=== PATIENT | male | born 1930 | race Caucasian/White ===

== ENCOUNTER 2017-10-13 16:33 | Observation (INO) | payer MEDICARE, OTHER ==
[2017-10-13] MEDS ORDERED: Iopamidol 755 Mg/ML 75 ML Bottle IV ONE (17:28)
--- NOTE | 2017-10-13 18:52 | EDM.PDOC ---
ED HPI GENERAL MEDICAL PROBLEM - General Stated Complaint: FELL OFF [employer] TRAILER Time Seen by Provider: 10/13/17 16:33 Source of Information: Reports: Patient History Limitations: Reports: Physical Impairment (severe arthritis, Severe pulmonary fibrosis) - History of Present Illness INITIAL COMMENTS - FREE TEXT/NARRATIVE: 87 y.o w m with a h/o ostoarthitis and pulmonary fibrosis, came by EMS after he was unloading a 4 Sorto, missed the steps and fell onto his head, neck and upper back and shoulder. Pt denies LOC. He C/O headache, neck, upper back and bilat shoulder pain. No F/C/N/V or any other constitutional symptoms. A [place] collar was applied initially pending the Imaging studies. BP 155/ 95 RR 20 Pulse ox 93 % on RA temp 36.8 Pulse 93 Onset Date: 10/13/17 Onset Time: 16:00 Duration: Minutes:, Improving Location: Reports: Neck, Back, Other (shoulders) Quality: Reports: Ache, Burning, Dull, Stabbing, Throbbing Severity: Moderate Improves with: Reports: Rest Worsens with: Reports: Movement Context: Reports: Trauma (fell on upper back) Associated Symptoms: Reports: Headaches neck/shoulder Pain Score (Numeric/FACES): 10 - Related Data Allergies Allergy/AdvReac Type Severity Reaction Status Date / Time No Known Allergies Allergy Verified 10/13/17 17:03 Home Meds: Home Meds Folic Acid 1 mg PO DAILY 10/13/17 [History] [place] 1 tab PO DAILY 10/13/17 [History] metFORMIN HCl [Metformin HCl] 500 mg PO DAILY 10/13/17 [History] predniSONE [Prednisone] 10 mg PO BID 10/13/17 [History] sulfaSALAzine [sulfaSALAzine DR] 500 mg PO DAILY 10/13/17 [History] Past Medical History - Past Health History Medical/Surgical History: Denies Medical/Surgical History Musculoskeletal History: Reports: Arthritis Social & Family History - Family History Family Medical History: Noncontributory - Tobacco Use Smoking Status *Q: Never Smoker Second Hand Smoke Exposure: No - Caffeine Use Caffeine Use: Reports: Coffee - Alcohol Use Days Per Week of Alcohol Use: 0 - Recreational Drug Use Recreational Drug Use: No ED ROS GENERAL - Review of Systems Review Of Systems: See Below Constitutional: Reports: No Symptoms HEENT: Reports: No Symptoms Respiratory: Reports: No Symptoms Cardiovascular: Reports: No Symptoms Endocrine: Reports: No Symptoms GI/Abdominal: Reports: No Symptoms : Reports: No Symptoms Musculoskeletal: Reports: Neck Pain, Shoulder Pain Skin: Reports: No Symptoms Neurological: Reports: Headache Psychiatric: Reports: No Symptoms Hematologic/Lymphatic: Reports: No Symptoms Immunologic: Reports: No Symptoms ED EXAM, UPPER BACK/NECK PAIN - Physical Exam Exam: See Below Exam Limited By: Physical Impairment General Appearance: Alert, WD/WN, Mild Distress Eye Exam: Bilateral Eye: Normal Inspection Ears Exam: Normal External Exam Nose Exam: Normal Inspection Throat/Mouth Exam: Normal Inspection Head Exam: Atraumatic, Normocephalic Neck Exam: Limited Range of Motion (due to severe arthitis), Muscle Spasm Cardiovascular/Respiratory: Regular Rate, Rhythm GI/Abdominal: Normal Bowel Sounds, Soft, Non-Tender, No Organomegaly, No Distention, No Abnormal Bruit, No Mass, Pelvis Stable (Male) Exam: Deferred Rectal (Males) Exam: Deferred Back Exam: Decreased Range of Motion, Muscle Spasm Extremities: Normal Inspection, Normal Range of Motion, Non-Tender, No Pedal Edema Neurologic: revising clerk II-XII nml As Tested, No Motor/Sensory Deficits, Alert, Normal Mood/Affect, Oriented x 3 Psychiatric: Normal Affect, Normal Mood Skin Exam: Normal Color, Warm/Dry Lymphatic: No Adenopathy Course - Vital Signs Text/Narrative:: 87 y.o w m with a h/o ostoarthitis and pulmonary fibrosis, came by EMS after he was unloading a 4 [employer]o, missed the steps and fell onto his head, neck and upper back and shoulder. Pt denies LOC. He C/O headache, neck, upper back and bilat shoulder pain. No F/C/N/V or any other constitutional symptoms. A [place] collar was applied initially pending the Imaging studies. BP 155/ 95 RR 20 Pulse ox 93 % on RA temp 36.8 Pulse 93 PE: WNWD W M with pulm fibrosis and osteoarthritis came by ems after he fell off a trailer onto his head,neckand upper back/shoulders. No LOC, pt ins not on blood thinners. Imaging: CT of head, neck and chest:NAD, same as the study of 2016 Labs: CBC was neg exeprt WBC was 14.2 BMP was neg glc was 161 however. His INR was 1.15 Impression: Fall to head/neck and chest without obvious injures, H/O pulm fibrosis. osteoarthritis, muscle spasm Tx: ICE, Toradol, Norflex Reexam: Improved. Plan: Admit for pain controll pt signed out to Dr. Cannon at 8 pm due to shift change Last Recorded V/S: Last Vital Signs Temp 36.5 C 10/13/17 20:12 Pulse 91 10/13/17 20:12 Resp 16 10/13/17 20:12 BP 141/67 H 10/13/17 20:12 Pulse Ox 95 10/13/17 20:12 - Orders/Labs/Meds Orders: Active Orders 24 hr Category Date Time Status Cervical Spine wo Cont [CT] Stat Exams 10/13/17 16:45 Taken Chest w Cont [CT] Stat Exams 10/13/17 16:56 Taken Head wo Cont [CT] Stat Exams 10/13/17 16:45 Taken UA W/MICROSCOPIC [URIN] Stat Lab 10/13/17 16:50 Ordered Medication Orders Albuterol (Proventil Neb Soln) 2.5 mg NEB Q2H PRN PRN Reason: Shortness Of Breath/wheezing Docusate Sodium (Colace) 100 mg PO BID PRN PRN Reason: Constipation Ibuprofen (Motrin) 600 mg PO Q6H PRN PRN Reason: Pain (mild 1-3) Ondansetron HCl (Zofran) 4 mg IV Q4H PRN PRN Reason: Nausea/Vomiting Oxycodone HCl (Oxycodone) 5 mg PO Q4H PRN PRN Reason: Pain (moderate 4-6) Oxycodone/Acetaminophen (Percocet 325-5 Mg) 1 tab PO Q6H PRN PRN Reason: severe pain Sodium Chloride (Saline Flush) 10 ml FLUSH ASDIRECTED PRN PRN Reason: Keep Vein Open Labs: Laboratory Tests 10/13/17 10/13/17 10/13/17 Range/Units 16:50 17:00 17:00 WBC 14.8 H (4.5-12.0) X10-3/uL RBC 5.30 (4.30-5.75) x10(6)uL Hgb 15.4 (11.5-15.5) g/dL Hct 47.7 (30.0-51.3) % MCV 90.1 (80-96) fL MCH 29.0 (27.7-33.6) pg MCHC 32.2 (32.2-35.4) g/dL RDW 14.9 (11.5-15.5) % Plt Count 289 (125-369) X10(3)uL MPV 8.8 (7.4-10.4) fL Add Manual Diff Yes Neutrophils % (Manual) 81 (46-82) % Band Neutrophils % 2 (0-6) % Lymphocytes % (Manual) 6 L (13-37) % Monocytes % (Manual) 10 (4-12) % Basophils % (Manual) 1 (0-2) % PT 11.6 H (8.7-11.1) INR 1.15 H (0.89-1.13) Sodium (135-145) mmol/L Potassium (3.5-5.3) mmol/L Chloride (100-110) mmol/L Carbon Dioxide (21-32) mmol/L BUN (7-18) mg/dL Creatinine (0.70-1.30) mg/dL Est Cr Clr Drug Dosing mL/min Estimated GFR (MDRD) (>60) BUN/Creatinine Ratio (9-20) Glucose (80-116) mg/dL Calcium (8.6-10.2) mg/dL Creatine Kinase (60-160) IU/L Troponin I (<0.017-0.056) ng/mL Urine Color Yellow (YELLOW) Urine Appearance Clear (CLEAR) Urine pH 7.0 H (5.0-6.5) Ur Specific [place] 1.015 (1.010-1.025) Urine Protein Negative (NEGATIVE) mg/dL Urine Glucose (UA) Normal (NEGATIVE) mg/dL Urine Ketones Negative (NEGATIVE) mg/dL Urine Occult Blood Negative (NEGATIVE) Urine Nitrite Negative (NEGATIVE) Urine Bilirubin Negative (NEGATIVE) Urine Urobilinogen Normal (NEGATIVE) mg/dL Ur Leukocyte Esterase Negative (NEGATIVE) Urine RBC 0-5 (0) Urine WBC 0-5 (0) Ur Squamous Epith Cells Occasional (NS,R,O) Urine Bacteria Few H (NS) 10/13/17 10/13/17 10/13/17 Range/Units 17:00 17:00 17:00 WBC (4.5-12.0) X10-3/uL RBC (4.30-5.75) x10(6)uL Hgb (11.5-15.5) g/dL Hct (30.0-51.3) % MCV (80-96) fL MCH (27.7-33.6) pg MCHC (32.2-35.4) g/dL RDW (11.5-15.5) % Plt Count (125-369) X10(3)uL MPV (7.4-10.4) fL Add Manual Diff Neutrophils % (Manual) (46-82) % Band Neutrophils % (0-6) % Lymphocytes % (Manual) (13-37) % Monocytes % (Manual) (4-12) % Basophils % (Manual) (0-2) % PT (8.7-11.1) INR (0.89-1.13) Sodium 141 (135-145) mmol/L Potassium 4.1 (3.5-5.3) mmol/L Chloride 104 (100-110) mmol/L Carbon Dioxide 28 (21-32) mmol/L BUN 15 (7-18) mg/dL Creatinine 0.9 (0.70-1.30) mg/dL Est Cr Clr Drug Dosing 65.86 mL/min Estimated GFR (MDRD) > 60 (>60) BUN/Creatinine Ratio 16.7 (9-20) Glucose 134 H (80-116) mg/dL Calcium 9.0 (8.6-10.2) mg/dL Creatine Kinase 114 (60-160) IU/L Troponin I < 0.017 L (<0.017-0.056) ng/mL Urine Color (YELLOW) Urine Appearance (CLEAR) Urine pH (5.0-6.5) Ur Specific [place] (1.010-1.025) Urine Protein (NEGATIVE) mg/dL Urine Glucose (UA) (NEGATIVE) mg/dL Urine Ketones (NEGATIVE) mg/dL Urine Occult Blood (NEGATIVE) Urine Nitrite (NEGATIVE) Urine Bilirubin (NEGATIVE) Urine Urobilinogen (NEGATIVE) mg/dL Ur Leukocyte Esterase (NEGATIVE) Urine RBC (0) Urine WBC (0) Ur Squamous Epith Cells (NS,R,O) Urine Bacteria (NS) Meds: Medications Generic Name Dose Route Start Last Admin Trade Name Freq PRN Reason Stop Dose Admin Albuterol 2.5 mg 10/13/17 19:54 Proventil Neb Soln NEB Q2H PRN Shortness Of Breath/wheezing Docusate Sodium 100 mg 10/13/17 19:54 Colace PO BID PRN Constipation Ibuprofen 600 mg 10/13/17 19:54 Motrin PO Q6H PRN Pain (mild 1-3) Ondansetron HCl 4 mg 10/13/17 19:54 Zofran IV Q4H PRN Nausea/Vomiting Oxycodone HCl 5 mg 10/13/17 19:54 Oxycodone PO Q4H PRN Pain (moderate 4-6) Oxycodone/Acetaminophen 1 tab 10/13/17 20:01 Percocet 325-5 Mg PO Q6H PRN severe pain Sodium Chloride 10 ml 10/13/17 19:54 Saline Flush FLUSH ASDIRECTED PRN Keep Vein Open Discontinued Medications Generic Name Dose Route Start Last Admin Trade Name Meñoq PRN Reason Stop Dose Admin Iopamidol 75 ml 10/13/17 17:28 10/13/17 17:57 Isovue-370 (76%) IV 10/13/17 17:29 75 ml ONETIME ONE Administration Ketorolac Tromethamine 30 mg 10/13/17 19:22 10/13/17 19:35 Toradol IM 10/13/17 19:23 30 mg ONETIME STA Administration Orphenadrine Citrate 60 mg 10/13/17 19:22 10/13/17 19:33 Norflex IM 10/13/17 19:23 60 mg Q12H STA Administration Departure - Departure Time of Disposition: 20:00 Disposition: Refer to Observation Condition: Fair Clinical Impression: Fall - Discharge Information - My Orders Last 24 Hours: My Active Orders 10/13/17 16:45 Cervical Spine wo Cont [CT] Stat Head wo Cont [CT] Stat 10/13/17 16:50 UA W/MICROSCOPIC [URIN] Stat 10/13/17 16:56 Chest w Cont [CT] Stat - Assessment/Plan Last 24 Hours: My Active Orders 10/13/17 16:45 Cervical Spine wo Cont [CT] Stat Head wo Cont [CT] Stat 10/13/17 16:50 UA W/MICROSCOPIC [URIN] Stat 10/13/17 16:56 Chest w Cont [CT] Stat
[2017-10-13] MEDS ORDERED: Ketorolac 30 MG/ML SDV IM STA (19:22)
[2017-10-13] MEDS ORDERED: Docusate Sodium 100 MG Cap PO PRN (19:54)
[2017-10-13] MEDS ORDERED: Sodium Chloride 0.9% 10 ML Syringe FLUSH PRN (19:54)
[2017-10-13] MEDS ORDERED: Albuterol 0.083% 2.5 MG/3 ML Neb Soln NEB PRN (19:54)
[2017-10-13] MEDS ORDERED: Ondansetron 4 MG/2 ML SDV IV PRN (19:54)
[2017-10-13] MEDS ORDERED: oxyCODONE 5 MG Tab PO PRN (19:54)
[2017-10-13] MEDS ORDERED: Acetaminophen/oxyCODONE 325-5 MG Tab PO PRN (20:01)
[2017-10-14] MEDS: Ibuprofen 600 MG Tab PO PRN ×2 (00:45→06:36)
--- NOTE | 2017-10-14 08:48 | CT ---
INDICATION: Trauma. Fell. CT HEAD WITHOUT CONTRAST: Serial contiguous 2.5 and 5-mm sections were obtained through the brain without contrast 10/13/2017 - no comparisons. Total Exam DLP = 950.31 mGy-cm. Focal areas of thickening of the linings of the maxillary antra are noted with a few similar areas of thickening of linings of ethmoidal air cells of questionable significance, likely representing either allergic process or previous sinusitis. Mastoid air cells appear well aerated. The cranium appears to be intact. No fractures identified. Calcifications are noted in the vertebral and internal carotid arteries. Calcification is noted in the falx cerebri. No shift of midline structures or ventricular abnormalities were identified. Minimal periventricular white matter abnormalities of low-density are noted, which may represent minimal microvascular disease, mostly frontal. No other abnormal areas of density were identified - no bleeding site or hematoma was seen. IMPRESSION: 1. No acute intracranial abnormality identified. 2. Minimal microvascular disease with cerebrovascular disease - arterial calcifications noted - other cause of leukoencephalopathy cannot be excluded. 3. Minimal changes in the paranasal sinuses. Report was called to Dr. Bravo at 1911 hours, 10/13/2017. [facility]
--- NOTE | 2017-10-14 09:00 | CT ---
INDICATION: Trauma. Fell. Low neck pain, C6-T1 area. CT CERVICAL SPINE WITHOUT CONTRAST: Spiral 2.5-mm axial sections were obtained through the cervical spine with sagittal and coronal reconstructions. Bony structures appear to be demineralized, suggesting osteoporosis - correlate clinically. Total Exam DLP = 587.41 mGy-cm. Severe degenerative changes are noted at the atlantoodontoid joint with marked narrowing of that joint space, sclerosis, and hypertrophic changes at that level. The atlas appears to be intact without evidence of a fracture. The odontoid appears to be intact. Hypertrophic degenerative changes are noted at the lateral masses throughout the cervical spine. Flowing hyperostotic changes anteriorly bridge the disk spaces and appear to be fusing the anterior aspects of the vertebral bodies of C3 through C7-T1 area. Otherwise, vertebral body and disk heights were maintained. The neural foramen appears to be fairly intact and patent. Vertebral elements appear to be normally aligned, without a definite fracture or dislocation identified. A second run was obtained due to lack of inclusion of posterior spinous processes in the lower cervical levels. The upper lung pereira visualized showed evidence of pulmonary fibrosis of at least moderate to moderately severe degree. IMPRESSION: 1. No definite acute fracture or dislocation. 2. Osteoarthritis with fairly severe bridging hyperostotic changes anteriorly off vertebral bodies, most severe C4 through C7-T1. The possibility of DISH is a consideration. 3. Probable osteoporosis. 4. Pulmonary fibrosis. Report was called to Dr. Bravo at 1911 hours, 10/13/2017. [facility]
--- NOTE | 2017-10-14 09:29 | CT ---
INDICATION: Trauma, mid sternal pain after falling onto back. CT CHEST WITH CONTRAST: Spiral 2.5-mm axial sections were obtained through the chest with 75 mL Isovue-370 at 1.8 mL per second, with sagittal and coronal reconstructions, 10/13/2017 and compared with 12/29/2015. Total Exam DLP = 672.89 mGy-cm. Fairly extensive infiltration is noted on a chronic basis scattered about the lungs, most prominently subpleural and likely represents a chronic inflammatory process which appears fairly stable. A definite acute consolidating pneumonia was not identified. The heart appears generous in size with coronary artery calcifications. The aorta is calcified. Mediastinal lymphadenopathy is mild to moderate and nonspecific, similar to the previous study. No mediastinal mass was seen. The gallbladder is again noted to be somewhat prominent in size which may be a physiologic distention. A new finding of a possible calcification within the gallbladder is noted near the neck of the gallbladder, which could represent a small calculus. This could be confirmed by ultrasound as necessary clinically. Off the lower pole anterior cortex, an exophytic cyst is noted at the right kidney anteriorly, measuring almost 4 cm. A definite contusion or pneumothorax was not identified. The major vessels appear to be intact in the chest. No change in the appearance of the sternum is noted, compared with the previous examination. Degenerative changes and mild scoliosis are noted in the thoracic spine. A definite acute fracture site was not identified. Hypertrophic changes are noted at the first rib manubrial junction. No definite acute fracture site is identified. There is a compression fracture at what appears to be L1 which likely is old. It was not definitely included on the previous examination. Hypertrophic degenerative changes bridging multiple disk spaces with a flowing hyperostotic appearance also seen, suggests osteoarthritis and DISH. IMPRESSION: 1. Fairly severe pulmonary fibrosis, possible chronic inflammatory disease, fairly stable compared with the previous study. 2. 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 3. ASHD with cardiomegaly. 4. ASD. 5. Compression fracture L1 of indeterminate age. 6. No acute fracture site or dislocation, pneumothorax or contusion identified. 7. The sternum in particular, as well as the manubrium, appears to be intact, but with degenerative changes of the first rib manubrial junctions noted. Report was called to Dr. Bravo at 1911 hours, 10/13/2017. [facility]
--- NOTE | 2017-10-14 10:34 | PCM.HP ---
H&P History of Present Illness - General Date of Service: 10/14/17 Admit Problem/Dx: Admission Diagnosis/Problem Admission Diagnosis/Problem Fall from height of greater than 3 feet Source of Information: Patient History Limitations: Reports: No Limitations - History of Present Illness Initial Comments - Free Text/Narative: David fell at work yesterday,landing on the head and neck. He was admitted for observation ,despite negative CT of Head,Nack and Chest for acute findings.He has a h/o Pulmonary fibrosis,stable. He has minimal pain in the neck today. Ambulates confortably. Slept well overnight and wants to go home. neck/shoulder Pain Score (Numeric/FACES): 10 - Related Data Allergies/Adverse Reactions: Allergies Allergy/AdvReac Type Severity Reaction Status Date / Time No Known Allergies Allergy Verified 10/13/17 17:03 Home Medications: Home Meds Folic Acid 1 mg PO DAILY 10/13/17 [History] [facility] 1 tab PO DAILY 10/13/17 [History] metFORMIN HCl [Metformin HCl] 500 mg PO DAILY 10/13/17 [History] predniSONE [Prednisone] 10 mg PO BID 10/13/17 [History] sulfaSALAzine [sulfaSALAzine DR] 500 mg PO DAILY 10/13/17 [History] Acetaminophen/oxyCODONE [Percocet 325-5 MG] 1 tab PO Q6H PRN #10 tablet [Rx] Past Medical History - Past Health History Medical/Surgical History: Denies Medical/Surgical History HEENT History: Reports: Cataract, Hard of Hearing, Macular Degeneration Respiratory History: Reports: COPD Musculoskeletal History: Reports: Arthritis Neurological History: Reports: Other (See Below) Other Neuro History: Back injury from with an incident para-trooping in the service. Endocrine/Metabolic History: Reports: Diabetes, Type II - Infectious Disease History Infectious Disease History: Reports: Chicken Pox, Measles, Mumps, Rubella, Other (See Below) Other Infectious Disease History: Patient not sure if he had Rubella or Measles. - Past Surgical History HEENT Surgical History: Reports: Cataract Surgery Musculoskeletal Surgical History: Reports: Knee Replacement, Other (See Below) Other Musculoskeletal Surgeries/Procedures:: Left and right knee replacement. Social & Family History - Family History Family Medical History: Noncontributory - Tobacco Use Smoking Status *Q: Never Smoker Years of Tobacco use: 5 Used Tobacco, but Quit: No Second Hand Smoke Exposure: No - Caffeine Use Caffeine Use: Reports: Coffee Other Caffeine Use: Usually drinks half cup coffee in the am. - Alcohol Use Days Per Week of Alcohol Use: 0 - Recreational Drug Use Recreational Drug Use: No H&P Review of Systems - Review of Systems: Review Of Systems: ROS reveals no pertinent complaints other than HPI. Exam - Exam Exam: See Below - Vital Signs Vital Signs: Last Vital Signs Temp 97.5 F 10/14/17 08:00 Pulse 76 10/14/17 08:00 Resp 16 10/14/17 08:00 BP 129/63 10/14/17 08:00 Pulse Ox 95 10/14/17 08:00 Weight: 103.51 kg - Exam General: Alert, Oriented, 4 HEENT: PERRLA, Hearing Intact, Mucosa Moist & [place], Nares Patent, Normal Nasal Septum, Posterior Pharynx Clear, Conjunctiva Clear, EOMI, EACs Clear, TMs Clear Neck: Supple, Trachea Midline, 2 Lungs: Clear to Auscultation, Normal Respiratory Effort Cardiovascular: Regular Rate, Regular Rhythm GI/Abdominal Exam: Normal Bowel Sounds, Soft, Non-Tender, No Organomegaly, No Distention, No Abnormal Bruit, No Mass, Pelvis Stable (Male) Exam: Deferred Rectal (Males) Exam: Deferred Back Exam: Normal Inspection, Paraspinal Tenderness, Vertebral Tenderness Extremities: Pedal Edema Skin: Warm, Dry, Intact Neurological: Cranial Nerves Intact, Reflexes Equal Bilateral Neuro Extensive - Mental Status: Alert, Oriented x3, Normal Mood/Affect, Normal Cognition Neuro Extensive - Motor, Sensory, Reflexes: CN II-XII Intact, Normal Gait, Normal Reflexes Psychiatric: Alert, Normal Affect, Normal Mood - Patient Data Lab Results Last 24 hrs: Laboratory Results - last 24 hr 10/13/17 10/13/17 10/13/17 Range/Units 16:50 17:00 17:00 WBC 14.8 H (4.5-12.0) X10-3/uL RBC 5.30 (4.30-5.75) x10(6)uL Hgb 15.4 (11.5-15.5) g/dL Hct 47.7 (30.0-51.3) % MCV 90.1 (80-96) fL MCH 29.0 (27.7-33.6) pg MCHC 32.2 (32.2-35.4) g/dL RDW 14.9 (11.5-15.5) % Plt Count 289 (125-369) X10(3)uL MPV 8.8 (7.4-10.4) fL Add Manual Diff Yes Neutrophils % (Manual) 81 (46-82) % Band Neutrophils % 2 (0-6) % Lymphocytes % (Manual) 6 L (13-37) % Monocytes % (Manual) 10 (4-12) % Basophils % (Manual) 1 (0-2) % PT 11.6 H (8.7-11.1) INR 1.15 H (0.89-1.13) Sodium (135-145) mmol/L Potassium (3.5-5.3) mmol/L Chloride (100-110) mmol/L Carbon Dioxide (21-32) mmol/L BUN (7-18) mg/dL Creatinine (0.70-1.30) mg/dL Est Cr Clr Drug Dosing mL/min Estimated GFR (MDRD) (>60) BUN/Creatinine Ratio (9-20) Glucose (80-116) mg/dL Calcium (8.6-10.2) mg/dL Creatine Kinase (60-160) IU/L Troponin I (<0.017-0.056) ng/mL Urine Color Yellow (YELLOW) Urine Appearance Clear (CLEAR) Urine pH 7.0 H (5.0-6.5) Ur Specific [place] 1.015 (1.010-1.025) Urine Protein Negative (NEGATIVE) mg/dL Urine Glucose (UA) Normal (NEGATIVE) mg/dL Urine Ketones Negative (NEGATIVE) mg/dL Urine Occult Blood Negative (NEGATIVE) Urine Nitrite Negative (NEGATIVE) Urine Bilirubin Negative (NEGATIVE) Urine Urobilinogen Normal (NEGATIVE) mg/dL Ur Leukocyte Esterase Negative (NEGATIVE) Urine RBC 0-5 (0) Urine WBC 0-5 (0) Ur Squamous Epith Cells Occasional (NS,R,O) Urine Bacteria Few H (NS) 10/13/17 10/13/17 10/13/17 Range/Units 17:00 17:00 17:00 WBC (4.5-12.0) X10-3/uL RBC (4.30-5.75) x10(6)uL Hgb (11.5-15.5) g/dL Hct (30.0-51.3) % MCV (80-96) fL MCH (27.7-33.6) pg MCHC (32.2-35.4) g/dL RDW (11.5-15.5) % Plt Count (125-369) X10(3)uL MPV (7.4-10.4) fL Add Manual Diff Neutrophils % (Manual) (46-82) % Band Neutrophils % (0-6) % Lymphocytes % (Manual) (13-37) % Monocytes % (Manual) (4-12) % Basophils % (Manual) (0-2) % PT (8.7-11.1) INR (0.89-1.13) Sodium 141 (135-145) mmol/L Potassium 4.1 (3.5-5.3) mmol/L Chloride 104 (100-110) mmol/L Carbon Dioxide 28 (21-32) mmol/L BUN 15 (7-18) mg/dL Creatinine 0.9 (0.70-1.30) mg/dL Est Cr Clr Drug Dosing 65.86 mL/min Estimated GFR (MDRD) > 60 (>60) BUN/Creatinine Ratio 16.7 (9-20) Glucose 134 H (80-116) mg/dL Calcium 9.0 (8.6-10.2) mg/dL Creatine Kinase 114 (60-160) IU/L Troponin I < 0.017 L (<0.017-0.056) ng/mL Urine Color (YELLOW) Urine Appearance (CLEAR) Urine pH (5.0-6.5) Ur Specific [place] (1.010-1.025) Urine Protein (NEGATIVE) mg/dL Urine Glucose (UA) (NEGATIVE) mg/dL Urine Ketones (NEGATIVE) mg/dL Urine Occult Blood (NEGATIVE) Urine Nitrite (NEGATIVE) Urine Bilirubin (NEGATIVE) Urine Urobilinogen (NEGATIVE) mg/dL Ur Leukocyte Esterase (NEGATIVE) Urine RBC (0) Urine WBC (0) Ur Squamous Epith Cells (NS,R,O) Urine Bacteria (NS) Result Diagrams: 10/13/17 17:00 10/13/17 17:00 EKG INTERPRETATION Rhythm: NSR - Problem List (1) Fall SNOMED Code(s): 2770269, 199468206 ICD Code: W19.XXXA - UNSPECIFIED FALL, INITIAL ENCOUNTER Status: Acute Qualifiers: Encounter type: subsequent encounter Qualified Code(s): W19.XXXD - Unspecified fall, subsequent encounter (2) Pulmonary fibrosis SNOMED Code(s): 00578243 ICD Code: J84.10 - PULMONARY FIBROSIS, UNSPECIFIED Status: Acute (3) L1 vertebral fracture SNOMED Code(s): 865112905, 179130931 ICD Code: S32.019A - UNSP FRACTURE OF FIRST LUMBAR VERTEBRA, INIT FOR CLOS FX Status: Chronic Qualifiers: Encounter type: initial encounter (4) Neck pain SNOMED Code(s): 58410355 ICD Code: M54.2 - CERVICALGIA Status: Acute Problem List Initiated/Reviewed/Updated: Yes Orders Last 24hrs: Active Orders 24 hr Category Date Time Status Patient Status [ADT] Routine ADT 10/13/17 19:54 Active Cardiac Monitoring [RC] 00,08,16 Care 10/13/17 19:58 Active IS (RT) [RT Incentive Spirometry] [RC] ASDIRECTED Care 10/14/17 08:18 Active Oxygen Therapy [RC] PRN Care 10/13/17 19:54 Active RT Aerosol Therapy [RC] ASDIRECTED Care 10/13/17 20:00 Active Up With Assistance [RC] ASDIRECTED Care 10/13/17 19:54 Active Vital Signs [RC] 00,04,08,12,16,20 Care 10/13/17 19:54 Active UA W/MICROSCOPIC [URIN] Stat Lab 10/13/17 16:50 Ordered Acetaminophen/oxyCODONE [Percocet 325-5 MG] Med 10/13/17 20:01 Active 1 tab PO Q6H PRN Albuterol [Proventil Neb Soln] Med 10/13/17 19:54 Active 2.5 mg NEB Q2H PRN Docusate Sodium [Colace] Med 10/13/17 19:54 Active 100 mg PO BID PRN Ibuprofen [Motrin] Med 10/13/17 19:54 Active 600 mg PO Q6H PRN Ondansetron [Zofran] Med 10/13/17 19:54 Active 4 mg IV Q4H PRN Sodium Chloride 0.9% [Saline Flush] Med 10/13/17 19:54 Active 10 ml FLUSH ASDIRECTED PRN oxyCODONE Med 10/13/17 19:54 Active 5 mg PO Q4H PRN Peripheral IV Insertion Adult [OM.PC] Routine Oth 10/13/17 19:54 Ordered Resuscitation Status Routine Resus Stat 10/13/17 19:54 Ordered EKG 12 Lead [EK] Routine Ther 10/13/17 19:54 Ordered Medication Orders Albuterol (Proventil Neb Soln) 2.5 mg NEB Q2H PRN PRN Reason: Shortness Of Breath/wheezing Docusate Sodium (Colace) 100 mg PO BID PRN PRN Reason: Constipation Ibuprofen (Motrin) 600 mg PO Q6H PRN PRN Reason: Pain (mild 1-3) Last Admin: 10/14/17 06:36 Dose: 600 mg Admin: 10/14/17 00:45 Dose: 600 mg Ondansetron HCl (Zofran) 4 mg IV Q4H PRN PRN Reason: Nausea/Vomiting Oxycodone HCl (Oxycodone) 5 mg PO Q4H PRN PRN Reason: Pain (moderate 4-6) Oxycodone/Acetaminophen (Percocet 325-5 Mg) 1 tab PO Q6H PRN PRN Reason: severe pain Sodium Chloride (Saline Flush) 10 ml FLUSH ASDIRECTED PRN PRN Reason: Keep Vein Open Assessment/Plan Comment:: Will Discharge him home on PT,and pain control. He will see his PCP next week. I also sent him home on 10 tablets of Percocet to use when necessary. He'll continue to wear the neck collar for comfort as needed.
== END 2017-10-14 11:40 | disposition home or self-care (01) ==
LOC: FB.ED 16:33 → FB.MS 19:54
PROVIDERS: ADMIT Family Medicine; ATTEND Family Medicine
DX: S32.019A Unspecified fracture of first lumbar vertebra, initial encounter for closed fracture (principal); J44.9 Chronic obstructive pulmonary disease, unspecified; H35.30 Unspecified macular degeneration; M19.90 Unspecified osteoarthritis, unspecified site; E11.9 Type 2 diabetes mellitus without complications; J84.10 Pulmonary fibrosis, unspecified; W19.XXXA Unspecified fall, initial encounter; Z79.899 Other long term (current) drug therapy; Z79.84 Long term (current) use of oral hypoglycemic drugs
CPT/HCPCS: 36415; 70450; 71260; 72125; 80048; 81001; 82550; 84484; 85025; 85610; 93005; 96372; 99284; A9270; G0378; J1885; J2360; Q9967

== ENCOUNTER 2018-01-29 12:08 | Emergency (ER) | payer MEDICARE, OTHER ==
--- NOTE | 2018-01-29 12:17 | EDM.PDOC ---
ED HPI GENERAL MEDICAL PROBLEM - General Stated Complaint: LEFT HIP PAIN Time Seen by Provider: 01/29/18 12:08 Source of Information: Reports: Patient, EMS, Family History Limitations: Reports: Physical Impairment - History of Present Illness INITIAL COMMENTS - FREE TEXT/NARRATIVE: 87 y.o.w.m with H/O NIDDM, H/O C6 fx came to the ed by EMS after he fell at home , unable to get up. Pt denied any other acute med issues, Family was present. No N/V/D no neurological deficit as per family. BP 175/74 pulse 92 RR 18 Pulse ox 96% on RA Temp 36.1 Onset Date: 01/29/18 Onset Time: 11:00 Duration: Hour(s): Location: Reports: Lower Extremity, Left Quality: Reports: Ache, Burning, Dull, Pressure Severity: Moderate Improves with: Reports: Rest Worsens with: Reports: Movement Context: Reports: Trauma L hip Pain Score (Numeric/FACES): 4 - Related Data Allergies Allergy/AdvReac Type Severity Reaction Status Date / Time No Known Allergies Allergy Verified 10/13/17 17:03 Home Meds: Home Meds Folic Acid 1 mg PO DAILY 10/13/17 [History] [facility] 1 tab PO DAILY 10/13/17 [History] metFORMIN HCl [Metformin HCl] 500 mg PO DAILY 10/13/17 [History] predniSONE [Prednisone] 10 mg PO DAILY 10/13/17 [History] sulfaSALAzine [sulfaSALAzine DR] 500 mg PO DAILY 10/13/17 [History] Acetaminophen [Tylenol Extra Strength] 500 mg PO DAILY 01/29/18 [History] Past Medical History - Past Health History Medical/Surgical History: Denies Medical/Surgical History HEENT History: Reports: Cataract, Hard of Hearing, Macular Degeneration Respiratory History: Reports: COPD Musculoskeletal History: Reports: Arthritis Neurological History: Reports: Other (See Below) Other Neuro History: Back injury from with an incident para-trooping in the service. Endocrine/Metabolic History: Reports: Diabetes, Type II - Infectious Disease History Infectious Disease History: Reports: Chicken Pox, Measles, Mumps, Rubella, Other (See Below) Other Infectious Disease History: Patient not sure if he had Rubella or Measles. - Past Surgical History HEENT Surgical History: Reports: Cataract Surgery Musculoskeletal Surgical History: Reports: Knee Replacement, Other (See Below) Other Musculoskeletal Surgeries/Procedures:: Left and right knee replacement. Social & Family History - Family History Family Medical History: Noncontributory - Caffeine Use Caffeine Use: Reports: Coffee Other Caffeine Use: Usually drinks half cup coffee in the am. Review of Systems - Review of Systems Review Of Systems: See Below Constitutional: Reports: No Symptoms Eyes: Reports: No Symptoms Ears: Reports: No Symptoms Nose: Reports: No Symptoms Mouth/Throat: Reports: No Symptoms Respiratory: Reports: No Symptoms Cardiovascular: Reports: No Symptoms GI/Abdominal: Reports: No Symptoms Genitourinary: Reports: No Symptoms Musculoskeletal: Reports: Joint Pain (left hip pain) Skin: Reports: No Symptoms Neurological: Reports: No Symptoms Psychiatric: Reports: No Symptoms ED EXAM, GENERAL - Physical Exam Exam: See Below Exam Limited By: Physical Impairment General Appearance: Alert, WD/WN, Moderate Distress Eye Exam: Bilateral Eye: Normal Inspection Ears: Normal External Exam Ear Exam: Bilateral Ear: Auricle Normal Nose: Normal Inspection, Normal Mucosa, No Blood Throat/Mouth: Normal Inspection, Normal Lips, Normal Gums, Normal Oropharynx, Normal Voice, No Airway Compromise Head: Atraumatic, Normocephalic Neck: Normal Inspection, Supple, Non-Tender, Other (H/O C6 fx) Respiratory/Chest: No Respiratory Distress, Lungs Clear, Normal Breath Sounds Peripheral Pulses: 1+: Radial (L) GI/Abdominal: Normal Bowel Sounds, Soft, Non-Tender, No Organomegaly, No Distention, No Abnormal Bruit, No Mass (Male) Exam: Deferred Rectal (Males) Exam: Deferred Back Exam: Normal Inspection, Full Range of Motion Extremities: Limited Range of Motion, Other (left leg shortened and extreverted) Neurological: Alert, Oriented, CN II-XII Intact, Normal Cognition Psychiatric: Normal Affect, Normal Mood Skin Exam: Warm, Dry, Intact, Normal Color, No Rash Lymphatic: No Adenopathy Course - Vital Signs Text/Narrative:: 87 y.o.w.m with H/O NIDDM, H/O C6 fx came to the ed by EMS after he fell at home , unable to get up. Pt denied any other acute med issues, Family was present. No N/V/D no neurological deficit as per family. BP 175/74 pulse 92 RR 18 Pulse ox 96% on RA Temp 36.1 PE: 87 y.o.w.m with left hip pain, H/O C6 Fx Imaging: Left intertrochanteric hip fx, Healing C6 Fx as per RAD Labs: INR 1.06 BMP nl CBC Nl HGB 15.6, however Impression: Left intertrochanteric hip fx, Healing C6 Fx Tx: Gil cath, MS 4mg x2, NS 1.22 pm Consultation: Dr Sinclair, Hospitalist, [facility]: Accepted the pt for further care Reexam: Improved Plan: Transfer to [place] as per family's request. Last Recorded V/S: Last Vital Signs Temp 36.3 C 01/29/18 12:08 Pulse 92 01/29/18 12:08 Resp 18 01/29/18 14:15 BP 151/72 H 01/29/18 14:15 Pulse Ox 93 L 01/29/18 14:15 - Orders/Labs/Meds Labs: Laboratory Tests 01/29/18 01/29/18 01/29/18 Range/Units 13:00 13:00 13:00 WBC 10.8 (4.5-12.0) X10-3/uL RBC 5.33 (4.30-5.75) x10(6)uL Hgb 15.6 H (11.5-15.5) g/dL Hct 48.0 (30.0-51.3) % MCV 90.0 (80-96) fL MCH 29.2 (27.7-33.6) pg MCHC 32.4 (32.2-35.4) g/dL RDW 14.4 (11.5-15.5) % Plt Count 256 (125-369) X10(3)uL MPV 8.5 (7.4-10.4) fL Neut % (Auto) 84.7 H (46-82) % Lymph % (Auto) 7.5 L (13-37) % Citrus % (Auto) 3.9 L (4-12) % Eos % (Auto) 1 (1.0-5.0) % Baso % (Auto) 3 H (0-2) % Neut # (Auto) 9.1 H (1.6-8.3) # Lymph # (Auto) 0.8 (0.6-5.0) # Citrus # (Auto) 0.4 (0.0-1.3) # Eos # (Auto) 0.1 (0.0-0.8) # Baso # (Auto) 0.4 H (0.0-0.2) # PT 10.7 (8.7-11.1) INR 1.10 (0.89-1.13) Sodium 138 (135-145) mmol/L Potassium 4.8 (3.5-5.3) mmol/L Chloride 105 (100-110) mmol/L Carbon Dioxide 27 (21-32) mmol/L BUN 18 (7-18) mg/dL Creatinine 1.0 (0.70-1.30) mg/dL Est Cr Clr Drug Dosing TNP Estimated GFR (MDRD) > 60 (>60) BUN/Creatinine Ratio 18.0 (9-20) Glucose 171 H (80-116) mg/dL Calcium 8.8 (8.6-10.2) mg/dL Urine Color (YELLOW) Urine Appearance (CLEAR) Urine pH (5.0-6.5) Ur Specific [place] (1.010-1.025) Urine Protein (NEGATIVE) mg/dL Urine Glucose (UA) (NEGATIVE) mg/dL Urine Ketones (NEGATIVE) mg/dL Urine Occult Blood (NEGATIVE) Urine Nitrite (NEGATIVE) Urine Bilirubin (NEGATIVE) Urine Urobilinogen (NEGATIVE) mg/dL Ur Leukocyte Esterase (NEGATIVE) Urine RBC (0) Urine WBC (0) Ur Squamous Epith Cells (NS,R,O) Urine Bacteria (NS) 01/29/18 Range/Units 13:50 WBC (4.5-12.0) X10-3/uL RBC (4.30-5.75) x10(6)uL Hgb (11.5-15.5) g/dL Hct (30.0-51.3) % MCV (80-96) fL MCH (27.7-33.6) pg MCHC (32.2-35.4) g/dL RDW (11.5-15.5) % Plt Count (125-369) X10(3)uL MPV (7.4-10.4) fL Neut % (Auto) (46-82) % Lymph % (Auto) (13-37) % Citrus % (Auto) (4-12) % Eos % (Auto) (1.0-5.0) % Baso % (Auto) (0-2) % Neut # (Auto) (1.6-8.3) # Lymph # (Auto) (0.6-5.0) # Citrus # (Auto) (0.0-1.3) # Eos # (Auto) (0.0-0.8) # Baso # (Auto) (0.0-0.2) # PT (8.7-11.1) INR (0.89-1.13) Sodium (135-145) mmol/L Potassium (3.5-5.3) mmol/L Chloride (100-110) mmol/L Carbon Dioxide (21-32) mmol/L BUN (7-18) mg/dL Creatinine (0.70-1.30) mg/dL Est Cr Clr Drug Dosing Estimated GFR (MDRD) (>60) BUN/Creatinine Ratio (9-20) Glucose (80-116) mg/dL Calcium (8.6-10.2) mg/dL Urine Color Yellow (YELLOW) Urine Appearance Clear (CLEAR) Urine pH 7.0 H (5.0-6.5) Ur Specific [place] 1.015 (1.010-1.025) Urine Protein Negative (NEGATIVE) mg/dL Urine Glucose (UA) Normal (NEGATIVE) mg/dL Urine Ketones Negative (NEGATIVE) mg/dL Urine Occult Blood Trace (NEGATIVE) Urine Nitrite Negative (NEGATIVE) Urine Bilirubin Small H (NEGATIVE) Urine Urobilinogen Normal (NEGATIVE) mg/dL Ur Leukocyte Esterase Negative (NEGATIVE) Urine RBC 0-5 (0) Urine WBC 0-5 (0) Ur Squamous Epith Cells Occasional (NS,R,O) Urine Bacteria Few H (NS) Meds: Medications Discontinued Medications Generic Name Dose Route Start Last Admin Trade Name Freq PRN Reason Stop Dose Admin Sodium Chloride 1,000 mls @ 125 mls/hr 01/29/18 13:45 01/29/18 13:25 Normal Saline IV 125 mls/hr ASDIRECTED JOMAR Administration Morphine Sulfate 4 mg 01/29/18 12:26 01/29/18 12:34 Morphine IVPUSH 01/29/18 12:27 Not Given ONETIME ONE Morphine Sulfate Confirm 01/29/18 12:26 01/29/18 12:30 Morphine Sulfate Administered 01/29/18 12:27 4 mg Dose Administration 4 mg .ROUTE .STK-MED ONE Morphine Sulfate Confirm 01/29/18 13:32 01/29/18 18:01 Morphine Sulfate Administered 01/29/18 13:33 Not Given Dose 4 mg .ROUTE .STK-MED ONE Morphine Sulfate 4 mg 01/29/18 13:40 01/29/18 13:40 Morphine Sulfate IVPUSH 01/29/18 13:41 4 mg ONETIME ONE Administration Sodium Chloride 10 ml 01/29/18 12:26 01/29/18 12:29 Saline Flush FLUSH 10 ml ASDIRECTED PRN Administration Keep Vein Open Departure - Departure Time of Disposition: 13:00 Disposition: DC/Tfer to Acute Hospital 02 Condition: Fair Clinical Impression: Hip fracture, left Qualifiers: Encounter type: initial encounter Fracture type: closed Qualified Code(s): S72.002A - Fracture of unspecified part of neck of left femur, initial encounter for closed fracture - Discharge Information Referrals: Ranjith Avila MD [Primary Care Provider] - Forms: ED Department Discharge
[2018-01-29] MEDS ORDERED: Morphine 4 MG/ML Syringe IVPUSH ONE (12:26)
[2018-01-29] MEDS ORDERED: Sodium Chloride 0.9% 10 ML Syringe FLUSH PRN (12:26)
--- NOTE | 2018-01-29 13:41 | PROC ---
DATE OF PROCEDURE: 01/29/2018 PROCEDURE PERFORMED: CT cervical spine without contrast, [address]85. INDICATION: Recheck C6-7 fracture, repeat trauma. PROCEDURE IN DETAIL: Spiral 2.5 mm axial sections were obtained through the cervical spine with sagittal and coronal reconstructions, 29 January 2018 and compared with 22 December 2017. Total exam DLP was 494.90 milligray-cm. The fracture site at the posterior elements of C5 appears to be healing with no significant change in position or alignment. The fracture line is less well visualized. Compression fractures at C5-6 are unchanged with no new acute fracture site or dislocation suggested. Prevertebral space appeared to be normal. Bone density appeared to be decreased as previously. Degenerative changes and disk disease are present as previously. IMPRESSION: 1. No new acute fracture site identified in the cervical spine, odontoid and atlas intact. 2. Healing fracture site, C5-6. 3. Stable compressions, C5-6. Report was called to Dr. Bravo at 1307 hours. /[id number] /MODL
[2018-01-29] MEDS ORDERED: Sodium Chloride 0.9% 1,000 ML IV SCH (13:45)
--- NOTE | 2018-01-30 08:38 | CR ---
INDICATION: Left hip pain, trauma. PELVIS WITH LEFT HIP: A single frontal view of the pelvis with a frontal view of the left hip and an attempted additional view of the left hip, which appears to be AP in projection, revealed a comminuted fracture through the intertrochanteric area and the femoral neck mainly, with lateral angulation at the fracture site. Diminished bone density is suggested, compatible with osteoporosis, but should be correlated clinically. Mild degenerative changes are noted at the right hip joint with mild hypertrophic changes at the left hip joint and slight loss of craniolateral joint space at the left hip. Overlying snaps are noted. IMPRESSION: 1. Femoral neck and intertrochanteric fracture with lateral angulation at the fracture site on the left. 2. Osteoarthritis, slightly more prominent on the left with slight loss of craniolateral joint space at the left hip joint. MTDD
--- NOTE | 2018-01-30 15:21 | CT ---
INDICATION: Recheck C6-7 fracture, repeat trauma. CT CERVICAL SPINE WITHOUT CONTRAST: Spiral 2.5 mm axial sections were obtained through the cervical spine with sagittal and coronal reconstructions, 29 January 2018 and compared with 22 December 2017. Total exam DLP = 494.90 mGy-cm. The fracture site at the posterior elements of C5 appears to be healing with no significant change in position or alignment. The fracture line is less well visualized. Compression fractures at C5-6 are unchanged with no new acute fracture site or dislocation suggested. Prevertebral space appeared to be normal. Bone density appeared to be decreased as previously. Degenerative changes and disk disease are present as previously. IMPRESSION: 1. No new acute fracture site identified in the cervical spine, odontoid and atlas intact. 2. Healing fracture site, C5-6. 3. Stable compressions, C5-6. Report was called to Dr. Bravo at 1307 hours on 01/29/2018. [facility]
== END 2018-01-29 15:08 ==
LOC: FB.ED 12:08
DX: S72.142A Displaced intertrochanteric fracture of left femur, initial encounter for closed fracture (principal); S72.002A Fracture of unspecified part of neck of left femur, initial encounter for closed fracture; S12.500D Unspecified displaced fracture of sixth cervical vertebra, subsequent encounter for fracture with routine healing; J44.9 Chronic obstructive pulmonary disease, unspecified; E11.9 Type 2 diabetes mellitus without complications; Z79.84 Long term (current) use of oral hypoglycemic drugs; Z79.899 Other long term (current) drug therapy; W19.XXXA Unspecified fall, initial encounter; Y92.009 Unspecified place in unspecified non-institutional (private) residence as the place of occurrence of the external cause
CPT/HCPCS: 36415; 51702; 72125; 73502; 80048; 81001; 85025; 85610; 96361; 96374; 96376; 99285; J2270; J7030; J7050

== ENCOUNTER 2018-02-04 08:59 | Inpatient (IN) | payer MEDICARE, OTHER ==
[2018-02-04] MEDS ORDERED: PEG 400/Propylene Glycol Ophth Soln 15 ML Bottle EYEBOTH PRN (15:09)
[2018-02-04] MEDS ORDERED: Acetaminophen/oxyCODONE 325-5 MG Tab PO PRN (15:09)
[2018-02-04] MEDS ORDERED: Folic Acid 1 MG Tab PO SCH (15:15)
[2018-02-04] MEDS ORDERED: Enoxaparin 40 MG/0.4 ML Syringe SUBCUT SCH (15:15)
[2018-02-04] MEDS: Gabapentin 300 MG Cap PO SCH ×2 (15:36→20:12)
[2018-02-04] MEDS: tiZANidine 4 MG Tab PO SCH ×2 (15:36→20:13)
[2018-02-05] MEDS: metFORMIN 500 MG Tab PO SCH (07:47)
[2018-02-05] MEDS: predniSONE 10 MG Tab PO SCH (07:47)
[2018-02-05] MEDS: Polyethylene Glycol 3350 Powder 17 GM Packet PO SCH (09:06)
[2018-02-05] MEDS: Enoxaparin 40 MG/0.4 ML Syringe SUBCUT SCH (09:06)
[2018-02-05] MEDS: Folic Acid 1 MG Tab PO SCH (09:06)
[2018-02-05] MEDS: Gabapentin 300 MG Cap PO SCH ×3 (09:06→20:44)
[2018-02-05] MEDS: tiZANidine 4 MG Tab PO SCH ×3 (09:07→20:45)
--- NOTE | 2018-02-05 09:26 | PCM.HP ---
H&P History of Present Illness - General Date of Service: 02/05/18 Admit Problem/Dx: Admission Diagnosis/Problem Admission Diagnosis/Problem Fracture of left hip requiring operative repair Source of Information: Patient, Old Records History Limitations: Reports: No Limitations - History of Present Illness Initial Comments - Free Text/Narative: Fredy Evans is a 89-year-old male that was admitted for rehabilitation after neck fracture and left hip fracture. This happened on 01/29/2018 after a mechanical fall near [place]. The neck fracture C4-5 were treated conservatively with the neck brace in collar. He complains of significant pain that is not well controlled. The left femur neck fracture had open reduction and internal fixation. He has a history of rheumatoid arthritis, pulmonary fibrosis and hypertension stable. Instructively,he also had fracture in October of C6 but is also stable. Left Hip Pain Score (Numeric/FACES): 2 - Related Data Allergies/Adverse Reactions: Allergies Allergy/AdvReac Type Severity Reaction Status Date / Time No Known Allergies Allergy Verified 02/04/18 12:21 Home Medications: Home Meds Folic Acid 1 mg PO DAILY 10/13/17 [History] metFORMIN HCl [Metformin HCl] 500 mg PO DAILY 10/13/17 [History] predniSONE [Prednisone] 10 mg PO DAILY 10/13/17 [History] Acetaminophen [Tylenol Extra Strength] 1,000 mg PO BID PRN 01/29/18 [History] Acetaminophen/oxyCODONE [Percocet 325-5 MG] 1 tab PO QID PRN 02/04/18 [History] Enoxaparin Sodium [Lovenox] 40 mg SUBCUT DAILY 02/04/18 [History] Gabapentin [Neurontin] 300 mg PO TID 02/04/18 [History] Polyethylene Glycol 3350 [MiraLAX] 17 gm PO DAILY 02/04/18 [History] Propylene Glycol/Peg 400 [Systane 0.3-0.4% Eye Drops] 1 drop EYEBOTH Q6H PRN [History] Sennosides/Docusate Sodium [Senna-S] 1 tab PO BID 02/04/18 [History] sulfaSALAzine [sulfaSALAzine DR] 500 mg PO DAILY 02/04/18 [History] tiZANidine [Zanaflex] 2 mg PO TID 02/04/18 [History] Past Medical History - Past Health History Medical/Surgical History: Denies Medical/Surgical History HEENT History: Reports: Cataract, Hard of Hearing, Macular Degeneration Other HEENT History: L retinal detachment. Respiratory History: Reports: COPD, Pulmonary Fibrosis Musculoskeletal History: Reports: Arthritis Other Musculoskeletal History: neck fx C6 Neurological History: Reports: Other (See Below) Other Neuro History: Back injury from with an incident para-trooping in the service. Endocrine/Metabolic History: Reports: Diabetes, Type II - Infectious Disease History Infectious Disease History: Reports: Chicken Pox, Measles, Mumps Other Infectious Disease History: Patient not sure if he had Rubella or Measles. - Past Surgical History HEENT Surgical History: Reports: Cataract Surgery, Detached Retina Other HEENT Surgeries/Procedures: detached retina in L eye Musculoskeletal Surgical History: Reports: Knee Replacement, Other (See Below) Other Musculoskeletal Surgeries/Procedures:: Left and right knee replacement. Left hip repair. Cervical fx. Social & Family History - Family History Family Medical History: Noncontributory - Tobacco Use Smoking Status *Q: Former Smoker Used Tobacco, but Quit: Yes Month/Year Tobacco Last Used: 1959 Second Hand Smoke Exposure: No - Caffeine Use Caffeine Use: Reports: Coffee Other Caffeine Use: 1 cup/day - Recreational Drug Use Recreational Drug Use: No H&P Review of Systems - Review of Systems: Review Of Systems: ROS reveals no pertinent complaints other than HPI. Exam - Exam Exam: See Below - Vital Signs Vital Signs: Last Vital Signs Temp 97.4 F 02/05/18 08:00 Pulse 86 02/05/18 08:00 Resp 18 02/05/18 08:00 BP 104/64 02/05/18 08:00 Pulse Ox 94 L 02/05/18 08:00 Weight: 99.881 kg - Exam General: Alert, Oriented, 4 HEENT: PERRLA, Hearing Intact, Mucosa Moist & Mears, Nares Patent, Normal Nasal Septum, Posterior Pharynx Clear, Conjunctiva Clear, EOMI, EACs Clear, TMs Clear Neck: Supple, Trachea Midline, 2 Lungs: Decreased Breath Sounds Cardiovascular: Regular Rate, Regular Rhythm GI/Abdominal Exam: Normal Bowel Sounds, Soft, Non-Tender, No Organomegaly, No Distention, No Abnormal Bruit, No Mass, Pelvis Stable (Male) Exam: Deferred Rectal (Males) Exam: Deferred Back Exam: Decreased Range of Motion, Paraspinal Tenderness (cervical spine), Vertebral Tenderness (Collar), Other (has ) Extremities: Normal Inspection, Normal Range of Motion, Non-Tender, No Pedal Edema, Normal Capillary Refill Skin: Warm, Dry, Intact Neurological: Cranial Nerves Intact, Reflexes Equal Bilateral Neuro Extensive - Mental Status: Alert, Oriented x3, Normal Mood/Affect, Normal Cognition Neuro Extensive - Motor, Sensory, Reflexes: CN II-XII Intact, Normal Gait, Normal Reflexes Psychiatric: Alert, Normal Affect, Normal Mood - Patient Data Lab Results Last 24 hrs: Laboratory Results - last 24 hr 02/04/18 02/05/18 Range/Units 18:35 07:17 POC Glucose 130 H 127 H (80-116) mg/dL - Problem List (1) Neck fracture SNOMED Code(s): 391316154 ICD Code: S12.9XXA - FRACTURE OF NECK, UNSPECIFIED, INITIAL ENCOUNTER Status: Acute Current Visit: Yes Qualifiers: Cervical vertebra fracture level: C4 Fracture type: closed Fracture healing: with routine healing (2) Femoral neck fracture SNOMED Code(s): 4465054 ICD Code: S72.009A - FRACTURE OF UNSP PART OF NECK OF UNSP FEMUR, INIT Status: Acute Current Visit: Yes Qualifiers: Encounter type: subsequent encounter Fracture type: closed Fracture healing: with routine healing (3) Rheumatoid arthritis SNOMED Code(s): 11993910 ICD Code: M06.9 - RHEUMATOID ARTHRITIS, UNSPECIFIED Status: Chronic Current Visit: Yes Qualifiers: Rheumatoid factor presence: unspecified presence (4) Pulmonary fibrosis SNOMED Code(s): 86998651 ICD Code: J84.10 - PULMONARY FIBROSIS, UNSPECIFIED Status: Chronic Current Visit: No (5) Blood loss anemia SNOMED Code(s): 178699037 ICD Code: D50.0 - IRON DEFICIENCY ANEMIA SECONDARY TO BLOOD LOSS (CHRONIC) Status: Acute Current Visit: Yes (6) Diabetes type 2, controlled SNOMED Code(s): 78898386 ICD Code: E11.9 - TYPE 2 DIABETES MELLITUS WITHOUT COMPLICATIONS Status: Acute Current Visit: Yes Qualifiers: Diabetes mellitus [facility] insulin use: without superintendent container terminal use Diabetes mellitus complication status: without complication Qualified Code(s): E11.9 - Type 2 diabetes mellitus without complications Problem List Initiated/Reviewed/Updated: Yes Orders Last 24hrs: Active Orders 24 hr Category Date Time Status Patient Status [ADT] Routine ADT 02/04/18 10:00 Active Activity as Tolerated [RC] .Routine Care 02/04/18 12:37 Active Blood Glucose Check, Bedside [RC] 07,1130,1730 Care 02/04/18 12:37 Active C Collar Applied [Spinal Immobilization] [RC] Care 02/04/18 13:05 Active ASDIRECTED Elevate Extremity [RC] PRN Care 02/04/18 12:37 Active May Shower [RC] .PRN Care 02/04/18 12:37 Active Wound Care [RC] DAILY Care 02/11/18 09:00 Active OT Evaluation and Treatment [CONS] Routine Cons 02/04/18 12:37 Active PT Evaluation and Treatment [CONS] Routine Cons 02/04/18 12:37 Active Consistent Carbohydrate Diet [DIET] Diet 02/04/18 Dinner Active Acetaminophen [Tylenol Extra Strength] Med 02/04/18 15:09 Active 1,000 mg PO BID PRN Acetaminophen/oxyCODONE [Percocet 325-5 MG] Med 02/04/18 15:09 Active 1 tab PO QID PRN Docusate Sodium/Sennosides [Senna Plus] Med 02/04/18 21:00 Active 1 tab PO BID Enoxaparin [Lovenox] Med 02/05/18 09:00 Active 40 mg SUBCUT DAILY Folic Acid Med 02/05/18 09:00 Active 1 mg PO DAILY Gabapentin [Neurontin] Med 02/04/18 15:15 Active 300 mg PO TID PEG 400/Propylene Glycol [Systane Lubricant] Med 02/04/18 15:09 Active 0 ml EYEBOTH Q6H PRN Polyethylene Glycol 3350 [MiraLAX] Med 02/05/18 09:00 Active 17 gm PO DAILY metFORMIN [Glucophage] Med 02/05/18 08:00 Active 500 mg PO WITHBREAKFAST predniSONE Med 02/05/18 08:00 Active 10 mg PO WITHBREAKFAST sulfaSALAzine [sulfaSALAzine DR] Med 02/05/18 09:00 Active 500 mg PO DAILY tiZANidine [Zanaflex] Med 02/04/18 15:15 Active 2 mg PO TID Ice Bag [Ice Therapy] [OM.PC] Routine Oth 02/04/18 13:12 Ordered Ice Therapy [OM.PC] Routine Oth 02/04/18 12:37 Ordered Weight bearing status [OM.PC] Routine Oth 02/04/18 12:37 Ordered Resuscitation Status Routine Resus Stat 02/04/18 12:37 Ordered Medication Orders Acetaminophen (Tylenol Extra Strength) 1,000 mg PO BID PRN PRN Reason: mild pain Enoxaparin Sodium (Lovenox) 40 mg SUBCUT DAILY [facility] Last Admin: 02/05/18 09:06 Dose: 40 mg Folic Acid (Folic Acid) 1 mg PO DAILY [facility] Last Admin: 02/05/18 09:06 Dose: 1 mg Gabapentin (Neurontin) 300 mg PO TID [facility] Last Admin: 02/05/18 09:06 Dose: 300 mg Admin: 02/04/18 20:12 Dose: 300 mg Admin: 02/04/18 15:36 Dose: 300 mg Metformin HCl (Glucophage) 500 mg PO WITHBREAKFAST [facility] Last Admin: 02/05/18 07:47 Dose: 500 mg Oxycodone/Acetaminophen (Percocet 325-5 Mg) 1 tab PO QID PRN PRN Reason: moderate pain Polyethylene Glycol (Miralax) 17 gm PO DAILY [facility] Last Admin: 02/05/18 09:06 Dose: 17 gm Prednisone (Prednisone) 10 mg PO WITHBREAKFAST [facility] Last Admin: 02/05/18 07:47 Dose: 10 mg Propylene Glycol (Systane Lubricant) 0 ml EYEBOTH Q6H PRN PRN Reason: Dry Eyes Senna/Docusate Sodium (Senna Plus) 1 tab PO BID [facility] Last Admin: 02/05/18 09:06 Dose: 1 tab Admin: 02/04/18 20:13 Dose: 1 tab Sulfasalazine (Sulfasalazine Dr) 500 mg PO DAILY [facility] Tizanidine HCl (Zanaflex) 2 mg PO TID [facility] Last Admin: 02/05/18 09:07 Dose: 2 mg Admin: 02/04/18 20:13 Dose: 2 mg Admin: 02/04/18 15:36 Dose: 2 mg Assessment/Plan Comment:: Resume home medications, control his pain with Percocet scheduled and use Tylenol when necessary. Consult physical and occupational therapy. He has a follow-up appointment with neurosurgery in 6 weeks. DVT prophylaxis with Lovenox.
[2018-02-05] MEDS ORDERED: sulfaSALAzine 500 MG Tab PO ONE (10:15)
[2018-02-05] MEDS: Acetaminophen/oxyCODONE 325-5 MG Tab PO SCH ×3 (11:42→20:49)
[2018-02-06] MEDS: Acetaminophen 500 MG Tab PO PRN (06:18)
[2018-02-06] MEDS: predniSONE 10 MG Tab PO SCH (07:59)
[2018-02-06] MEDS: metFORMIN 500 MG Tab PO SCH (07:59)
[2018-02-06] MEDS: tiZANidine 4 MG Tab PO SCH ×3 (08:53→21:59)
[2018-02-06] MEDS: Gabapentin 300 MG Cap PO SCH ×3 (08:53→21:58)
[2018-02-06] MEDS: Folic Acid 1 MG Tab PO SCH (08:53)
[2018-02-06] MEDS: Acetaminophen/oxyCODONE 325-5 MG Tab PO SCH ×3 (08:54→21:58)
[2018-02-06] MEDS: Enoxaparin 40 MG/0.4 ML Syringe SUBCUT SCH (08:54)
[2018-02-06] MEDS: sulfaSALAzine 500 MG Tab.EC PO SCH (08:54)
[2018-02-06] MEDS: Polyethylene Glycol 3350 Powder 17 GM Packet PO SCH (08:55)
[2018-02-07] MEDS: Acetaminophen 500 MG Tab PO PRN (03:22)
[2018-02-07] MEDS: metFORMIN 500 MG Tab PO SCH (08:04)
[2018-02-07] MEDS: Enoxaparin 40 MG/0.4 ML Syringe SUBCUT SCH (08:04)
[2018-02-07] MEDS: Polyethylene Glycol 3350 Powder 17 GM Packet PO SCH (08:05)
[2018-02-07] MEDS: sulfaSALAzine 500 MG Tab.EC PO SCH (08:05)
[2018-02-07] MEDS: Gabapentin 300 MG Cap PO SCH ×3 (08:05→21:14)
[2018-02-07] MEDS: tiZANidine 4 MG Tab PO SCH ×3 (08:05→21:15)
[2018-02-07] MEDS: Folic Acid 1 MG Tab PO SCH (08:05)
[2018-02-07] MEDS: predniSONE 10 MG Tab PO SCH (08:05)
[2018-02-07] MEDS: Acetaminophen/oxyCODONE 325-5 MG Tab PO SCH ×3 (08:05→21:14)
[2018-02-08] MEDS: predniSONE 10 MG Tab PO SCH (08:14)
[2018-02-08] MEDS: metFORMIN 500 MG Tab PO SCH (08:14)
[2018-02-08] MEDS: Enoxaparin 40 MG/0.4 ML Syringe SUBCUT SCH (08:14)
[2018-02-08] MEDS: sulfaSALAzine 500 MG Tab.EC PO SCH (08:15)
[2018-02-08] MEDS: tiZANidine 4 MG Tab PO SCH ×3 (08:15→20:45)
[2018-02-08] MEDS: Gabapentin 300 MG Cap PO SCH ×3 (08:15→20:44)
[2018-02-08] MEDS: Folic Acid 1 MG Tab PO SCH (08:15)
[2018-02-08] MEDS: Polyethylene Glycol 3350 Powder 17 GM Packet PO SCH (08:16)
[2018-02-08] MEDS: Acetaminophen/oxyCODONE 325-5 MG Tab PO SCH ×3 (08:32→20:45)
--- NOTE | 2018-02-09 08:17 | PCM.PN ---
- General Info Date of Service: 02/09/18 Admission Dx/Problem (Free Text): 87-year-old male patient with a cervical fracture and the left hip fracture with hip pinning. He is doing well. Pain is controlled on oxycodone. He has no concerns today. - Patient Data Vitals - Most Recent: Last Vital Signs Temp 97.5 F 02/09/18 06:29 Pulse 65 02/09/18 06:29 Resp 16 02/09/18 06:29 BP 124/66 02/09/18 06:29 Pulse Ox 91 L 02/09/18 06:29 Weight - Most Recent: 220 lb 3.2 oz Lab Results Last 24 Hours: Laboratory Results - last 24 hr 02/08/18 02/08/18 02/09/18 Range/Units 11:27 17:26 06:10 POC Glucose 166 H 198 H 113 D (80-116) mg/dL Med Orders - Current: Current Medications Acetaminophen (Tylenol Extra Strength) 1,000 mg PO BID PRN PRN Reason: mild pain Last Admin: 02/07/18 03:22 Dose: 1,000 mg Enoxaparin Sodium (Lovenox) 40 mg SUBCUT DAILY [facility] Stop: 02/26/18 09:01 Last Admin: 02/08/18 08:14 Dose: 40 mg Folic Acid (Folic Acid) 1 mg PO DAILY [facility] Last Admin: 02/08/18 08:15 Dose: 1 mg Gabapentin (Neurontin) 300 mg PO TID [facility] Last Admin: 02/08/18 20:44 Dose: 300 mg Metformin HCl (Glucophage) 500 mg PO WITHBREAKFAST [facility] Last Admin: 02/08/18 08:14 Dose: 500 mg Oxycodone/Acetaminophen (Percocet 325-5 Mg) 1 tab PO TID [facility] Last Admin: 02/08/18 20:45 Dose: 1 tab Polyethylene Glycol (Miralax) 17 gm PO DAILY [facility] Last Admin: 02/08/18 08:16 Dose: Not Given Prednisone (Prednisone) 10 mg PO WITHBREAKFAST [facility] Last Admin: 02/08/18 08:14 Dose: 10 mg Propylene Glycol (Systane Lubricant) 0 ml EYEBOTH Q6H PRN PRN Reason: Dry Eyes Senna/Docusate Sodium (Senna Plus) 1 tab PO BID [facility] Last Admin: 02/08/18 20:45 Dose: 1 tab Sulfasalazine (Sulfasalazine Dr) 500 mg PO DAILY [facility] Last Admin: 02/08/18 08:15 Dose: 500 mg Tizanidine HCl (Zanaflex) 2 mg PO TID [facility] Last Admin: 02/08/18 20:45 Dose: 2 mg Discontinued Medications Oxycodone/Acetaminophen (Percocet 325-5 Mg) 1 tab PO QID PRN PRN Reason: moderate pain Sulfasalazine (Sulfasalazine) 500 mg PO ONETIME ONE Stop: 02/05/18 10:16 Last Admin: 02/05/18 11:42 Dose: 500 mg - Exam General: Alert, Oriented, Cooperative Neck: Other (Cervical collar) Lungs: Normal Respiratory Effort Extremities: No Pedal Edema Wound/Incisions: Other (Wound healing well the left hip with yaima in place. No drainage.) - Problem List & Annotations (1) Neck fracture SNOMED Code(s): 405372902 Code(s): S12.9XXA - FRACTURE OF NECK, UNSPECIFIED, INITIAL ENCOUNTER Status : Acute Current Visit: Yes Qualifiers: Cervical vertebra fracture level: C4 Fracture type: closed Fracture healing: with routine healing (2) Hip fracture, left SNOMED Code(s): 147438880 Code(s): S72.002A - FRACTURE OF UNSP PART OF NECK OF LEFT FEMUR, INIT Status: Acute Current Visit: No Qualifiers: Encounter type: initial encounter Fracture type: closed Qualified Code(s) : S72.002A - Fracture of unspecified part of neck of left femur, initial encounter for closed fracture - Problem List Review Problem List Initiated/Reviewed/Updated: Yes - My Orders Last 24 Hours: My Active Orders 02/09/18 09:00 Acetaminophen/HYDROcodone [Warren 325-5 MG] 1 tab PO TID - Plan Plan:: Discussed with the patient about pain control. He is willing to try to decrease. So I will stop the oxycodone put him hydrocodone 10/16/24 3 times a day. Maximum Tylenol as 4 g a day.
[2018-02-09] MEDS: metFORMIN 500 MG Tab PO SCH (08:26)
[2018-02-09] MEDS: predniSONE 10 MG Tab PO SCH (08:26)
[2018-02-09] MEDS: Enoxaparin 40 MG/0.4 ML Syringe SUBCUT SCH (08:27)
[2018-02-09] MEDS: Folic Acid 1 MG Tab PO SCH (08:27)
[2018-02-09] MEDS: Gabapentin 300 MG Cap PO SCH ×3 (08:28→20:41)
[2018-02-09] MEDS: Polyethylene Glycol 3350 Powder 17 GM Packet PO SCH (08:28)
[2018-02-09] MEDS: tiZANidine 4 MG Tab PO SCH ×3 (08:29→20:41)
[2018-02-09] MEDS: sulfaSALAzine 500 MG Tab.EC PO SCH (08:29)
[2018-02-09] MEDS: Acetaminophen/HYDROcodone 325-5 MG Tab PO SCH ×3 (08:36→20:41)
[2018-02-10] MEDS: predniSONE 10 MG Tab PO SCH (09:09)
[2018-02-10] MEDS: Gabapentin 300 MG Cap PO SCH ×3 (09:09→21:07)
[2018-02-10] MEDS: Folic Acid 1 MG Tab PO SCH (09:09)
[2018-02-10] MEDS: sulfaSALAzine 500 MG Tab.EC PO SCH (09:09)
[2018-02-10] MEDS: metFORMIN 500 MG Tab PO SCH (09:09)
[2018-02-10] MEDS: tiZANidine 4 MG Tab PO SCH ×3 (09:09→21:07)
[2018-02-10] MEDS: Polyethylene Glycol 3350 Powder 17 GM Packet PO SCH (09:10)
[2018-02-10] MEDS: Enoxaparin 40 MG/0.4 ML Syringe SUBCUT SCH (09:10)
[2018-02-10] MEDS: Acetaminophen/HYDROcodone 325-5 MG Tab PO SCH ×3 (09:19→21:08)
[2018-02-11] MEDS: Folic Acid 1 MG Tab PO SCH (08:34)
[2018-02-11] MEDS: Enoxaparin 40 MG/0.4 ML Syringe SUBCUT SCH (08:34)
[2018-02-11] MEDS: predniSONE 10 MG Tab PO SCH (08:34)
[2018-02-11] MEDS: metFORMIN 500 MG Tab PO SCH (08:34)
[2018-02-11] MEDS: Polyethylene Glycol 3350 Powder 17 GM Packet PO SCH (08:35)
[2018-02-11] MEDS: Acetaminophen/HYDROcodone 325-5 MG Tab PO SCH ×3 (08:36→21:04)
[2018-02-11] MEDS: Gabapentin 300 MG Cap PO SCH ×3 (08:36→20:59)
[2018-02-11] MEDS: sulfaSALAzine 500 MG Tab.EC PO SCH (08:41)
[2018-02-11] MEDS: tiZANidine 4 MG Tab PO SCH ×3 (08:42→20:59)
[2018-02-12] MEDS: predniSONE 10 MG Tab PO SCH (07:34)
[2018-02-12] MEDS: metFORMIN 500 MG Tab PO SCH (07:34)
[2018-02-12] MEDS: Folic Acid 1 MG Tab PO SCH (08:30)
[2018-02-12] MEDS: Polyethylene Glycol 3350 Powder 17 GM Packet PO SCH (08:31)
[2018-02-12] MEDS: Enoxaparin 40 MG/0.4 ML Syringe SUBCUT SCH (08:31)
[2018-02-12] MEDS: Gabapentin 300 MG Cap PO SCH ×3 (10:59→21:14)
[2018-02-12] MEDS: tiZANidine 4 MG Tab PO SCH ×3 (11:00→21:14)
[2018-02-12] MEDS: sulfaSALAzine 500 MG Tab.EC PO SCH (11:00)
[2018-02-12] MEDS ORDERED: Acetaminophen/HYDROcodone 325-5 MG Tab ONE (11:11)
[2018-02-12] MEDS: Acetaminophen/HYDROcodone 325-5 MG Tab PO SCH (11:12)
[2018-02-12] MEDS ORDERED: Acetaminophen/oxyCODONE 325-5 MG Tab PO PRN (11:27)
[2018-02-13] MEDS: Acetaminophen/HYDROcodone 325-5 MG Tab PO PRN ×2 (09:14→22:06)
[2018-02-13] MEDS: metFORMIN 500 MG Tab PO SCH (09:15)
[2018-02-13] MEDS: Enoxaparin 40 MG/0.4 ML Syringe SUBCUT SCH (09:16)
[2018-02-13] MEDS: predniSONE 10 MG Tab PO SCH (09:16)
[2018-02-13] MEDS: Folic Acid 1 MG Tab PO SCH (09:16)
[2018-02-13] MEDS: sulfaSALAzine 500 MG Tab.EC PO SCH (09:17)
[2018-02-13] MEDS: Gabapentin 300 MG Cap PO SCH ×3 (09:17→20:11)
[2018-02-13] MEDS: Polyethylene Glycol 3350 Powder 17 GM Packet PO SCH (09:17)
[2018-02-13] MEDS: tiZANidine 4 MG Tab PO SCH ×3 (09:18→20:12)
--- NOTE | 2018-02-13 12:04 | PN ---
DATE SEEN: 02/13/2018 HISTORY: Fredy is an 87-year-old, resident of [place], who sustained a cervical spine fracture of compression of C6 on October 13, 2017. He was in neck brace continuously for three months for that and in December started to be intermittently out of his neck brace. He was healing satisfactorily, but on January 29, 2018 he fell while trying to step up onto a curb. He states his left leg has been weak and this caused him to fall. He sustained an intertrochanteric fracture of the left hip. He was sent to [facility] in [place] where he underwent ORIF on January 30, 2018. He had no new neck symptoms, but repeat CT of the cervical spine suggested a possible fracture at C4 with the old visible healing fracture at the C5-6 level. Fredy has been back in a cervical collar since that time, removed only for hygiene. His left hip is healing satisfactorily. He has been up walking in therapy, but has primarily problems with his strength in his left leg. Additional past history includes chronic rheumatoid arthritis, hypertension, pulmonary fibrosis, and history of bilateral knee arthroplasties due to osteoarthritis. REVIEW OF SYSTEMS: Today is negative for fever, chills, or symptoms of recent infection. No sore throat, cough, dyspnea, chest pain, palpitations, abdominal pain, nausea, diarrhea, swelling or skin rash. PHYSICAL EXAMINATION: GENERAL: He is alert, comfortable, well oriented in good spirits and good historian. VITAL SIGNS: Blood pressure 127/66, pulse 76, respirations 17, temperature 97.6, and O2 saturation 93% on room air. SKIN: Clear without rash. NECK: He has a cervical collar in place. THROAT: Clear. LUNGS: Clear. HEART: Regular without murmur or gallop. ABDOMEN: Soft and nontender. EXTREMITIES: Showed no edema. He has yaima in 2 healing incisions left lateral hip area. ASSESSMENT: 1. Open reduction and internal fixation of left femoral neck fracture, repaired on 01/30/2018, now two weeks out. 2. Old cervical spine fracture, question of additional nondisplaced C4 fracture, in collar essentially manager regulatory for the past two weeks. 3. History of rheumatoid arthritis. 4. Pulmonary fibrosis. 5. History of total knee arthroplasties. 6. History of type 2 diabetes. PLAN: Fredy states he is receiving adequate pain control from his medications. He remains on enoxaparin that will last for another three weeks. He will remain on prednisone for his rheumatoid arthritis, as well as sulfasalazine for same. Continue physical therapy. Anticipate return to home. [place] once recuperation from his hip fracture is complete. /[id number] RO/MODL
[2018-02-14] MEDS: Folic Acid 1 MG Tab PO SCH (08:22)
[2018-02-14] MEDS: predniSONE 10 MG Tab PO SCH (08:22)
[2018-02-14] MEDS: metFORMIN 500 MG Tab PO SCH (08:22)
[2018-02-14] MEDS: Polyethylene Glycol 3350 Powder 17 GM Packet PO SCH (08:23)
[2018-02-14] MEDS: Enoxaparin 40 MG/0.4 ML Syringe SUBCUT SCH (08:23)
[2018-02-14] MEDS: Gabapentin 300 MG Cap PO SCH ×3 (08:23→20:26)
[2018-02-14] MEDS: tiZANidine 4 MG Tab PO SCH ×3 (08:24→20:28)
[2018-02-14] MEDS: sulfaSALAzine 500 MG Tab.EC PO SCH (08:24)
[2018-02-15] MEDS: Acetaminophen/HYDROcodone 325-5 MG Tab PO PRN (03:04)
[2018-02-15] MEDS: Acetaminophen 500 MG Tab PO PRN (07:47)
[2018-02-15] MEDS: Enoxaparin 40 MG/0.4 ML Syringe SUBCUT SCH (08:23)
[2018-02-15] MEDS: metFORMIN 500 MG Tab PO SCH (08:23)
[2018-02-15] MEDS: predniSONE 10 MG Tab PO SCH (08:23)
[2018-02-15] MEDS: Folic Acid 1 MG Tab PO SCH (08:23)
[2018-02-15] MEDS: Polyethylene Glycol 3350 Powder 17 GM Packet PO SCH (08:24)
[2018-02-15] MEDS: Gabapentin 300 MG Cap PO SCH ×3 (08:24→20:53)
[2018-02-15] MEDS: sulfaSALAzine 500 MG Tab.EC PO SCH (08:25)
[2018-02-15] MEDS: tiZANidine 4 MG Tab PO SCH ×3 (08:26→20:53)
[2018-02-16] MEDS: metFORMIN 500 MG Tab PO SCH (08:41)
[2018-02-16] MEDS: predniSONE 10 MG Tab PO SCH (08:41)
[2018-02-16] MEDS: Folic Acid 1 MG Tab PO SCH (08:41)
[2018-02-16] MEDS: Enoxaparin 40 MG/0.4 ML Syringe SUBCUT SCH (08:42)
[2018-02-16] MEDS: Polyethylene Glycol 3350 Powder 17 GM Packet PO SCH (08:42)
[2018-02-16] MEDS: Gabapentin 300 MG Cap PO SCH ×3 (08:43→20:47)
[2018-02-16] MEDS: tiZANidine 4 MG Tab PO SCH ×3 (08:44→20:47)
[2018-02-16] MEDS: sulfaSALAzine 500 MG Tab.EC PO SCH (08:44)
[2018-02-16] MEDS: Acetaminophen 500 MG Tab PO PRN (09:29)
[2018-02-17] MEDS: Acetaminophen 500 MG Tab PO PRN ×2 (04:06→21:12)
[2018-02-17] MEDS: metFORMIN 500 MG Tab PO SCH (08:38)
[2018-02-17] MEDS: Polyethylene Glycol 3350 Powder 17 GM Packet PO SCH (08:39)
[2018-02-17] MEDS: predniSONE 10 MG Tab PO SCH (08:39)
[2018-02-17] MEDS: Folic Acid 1 MG Tab PO SCH (08:39)
[2018-02-17] MEDS: Enoxaparin 40 MG/0.4 ML Syringe SUBCUT SCH (08:39)
[2018-02-17] MEDS: sulfaSALAzine 500 MG Tab.EC PO SCH (08:40)
[2018-02-17] MEDS: Gabapentin 300 MG Cap PO SCH (08:40)
[2018-02-17] MEDS: tiZANidine 4 MG Tab PO SCH (08:40)
[2018-02-17] MEDS: Gabapentin 100 MG Cap PO SCH ×2 (14:29→21:08)
[2018-02-18] MEDS: Folic Acid 1 MG Tab PO SCH (08:24)
[2018-02-18] MEDS: Gabapentin 100 MG Cap PO SCH ×3 (08:24→20:25)
[2018-02-18] MEDS: Polyethylene Glycol 3350 Powder 17 GM Packet PO SCH (08:24)
[2018-02-18] MEDS: sulfaSALAzine 500 MG Tab.EC PO SCH (08:24)
[2018-02-18] MEDS: metFORMIN 500 MG Tab PO SCH (08:24)
[2018-02-18] MEDS: predniSONE 10 MG Tab PO SCH (08:24)
[2018-02-18] MEDS: Enoxaparin 40 MG/0.4 ML Syringe SUBCUT SCH (08:24)
[2018-02-18] MEDS: Acetaminophen 500 MG Tab PO PRN (20:27)
[2018-02-19] MEDS: predniSONE 10 MG Tab PO SCH (08:34)
[2018-02-19] MEDS: metFORMIN 500 MG Tab PO SCH (08:34)
[2018-02-19] MEDS: Folic Acid 1 MG Tab PO SCH (08:34)
[2018-02-19] MEDS: Enoxaparin 40 MG/0.4 ML Syringe SUBCUT SCH (08:34)
[2018-02-19] MEDS: Polyethylene Glycol 3350 Powder 17 GM Packet PO SCH (08:35)
[2018-02-19] MEDS: Acetaminophen 500 MG Tab PO PRN (08:36)
[2018-02-19] MEDS: Gabapentin 100 MG Cap PO SCH (10:22)
[2018-02-19] MEDS: sulfaSALAzine 500 MG Tab.EC PO SCH (10:22)
[2018-02-20] MEDS: Enoxaparin 40 MG/0.4 ML Syringe SUBCUT SCH (10:42)
[2018-02-20] MEDS: predniSONE 10 MG Tab PO SCH (10:42)
[2018-02-20] MEDS: metFORMIN 500 MG Tab PO SCH (10:42)
[2018-02-20] MEDS: Folic Acid 1 MG Tab PO SCH (10:42)
[2018-02-20] MEDS: sulfaSALAzine 500 MG Tab.EC PO SCH (10:43)
[2018-02-20] MEDS: Polyethylene Glycol 3350 Powder 17 GM Packet PO SCH (10:43)
[2018-02-20] MEDS: Acetaminophen 500 MG Tab PO PRN ×2 (11:10→20:46)
[2018-02-21] MEDS: metFORMIN 500 MG Tab PO SCH (08:00)
[2018-02-21] MEDS: predniSONE 10 MG Tab PO SCH (08:00)
[2018-02-21] MEDS: Enoxaparin 40 MG/0.4 ML Syringe SUBCUT SCH (09:56)
[2018-02-21] MEDS: Folic Acid 1 MG Tab PO SCH (09:56)
[2018-02-21] MEDS: Polyethylene Glycol 3350 Powder 17 GM Packet PO SCH (09:56)
[2018-02-21] MEDS: sulfaSALAzine 500 MG Tab.EC PO SCH (09:56)
[2018-02-21] MEDS: Acetaminophen 500 MG Tab PO PRN (10:08)
[2018-02-22] MEDS: Folic Acid 1 MG Tab PO SCH (08:18)
[2018-02-22] MEDS: Enoxaparin 40 MG/0.4 ML Syringe SUBCUT SCH (08:18)
[2018-02-22] MEDS: sulfaSALAzine 500 MG Tab.EC PO SCH (08:18)
[2018-02-22] MEDS: predniSONE 10 MG Tab PO SCH (08:18)
[2018-02-22] MEDS: Polyethylene Glycol 3350 Powder 17 GM Packet PO SCH (08:19)
[2018-02-22] MEDS: metFORMIN 500 MG Tab PO SCH (08:19)
[2018-02-23] MEDS: Enoxaparin 40 MG/0.4 ML Syringe SUBCUT SCH (09:10)
[2018-02-23] MEDS: Folic Acid 1 MG Tab PO SCH (09:10)
[2018-02-23] MEDS: sulfaSALAzine 500 MG Tab.EC PO SCH (09:10)
[2018-02-23] MEDS: predniSONE 10 MG Tab PO SCH (09:10)
[2018-02-23] MEDS: metFORMIN 500 MG Tab PO SCH (09:10)
[2018-02-23] MEDS: Polyethylene Glycol 3350 Powder 17 GM Packet PO SCH (09:11)
[2018-02-23] MEDS: Acetaminophen 500 MG Tab PO PRN (12:40)
[2018-02-24] MEDS: predniSONE 10 MG Tab PO SCH (08:34)
[2018-02-24] MEDS: Acetaminophen 500 MG Tab PO PRN (08:34)
[2018-02-24] MEDS: sulfaSALAzine 500 MG Tab.EC PO SCH (08:34)
[2018-02-24] MEDS: Folic Acid 1 MG Tab PO SCH (08:34)
[2018-02-24] MEDS: metFORMIN 500 MG Tab PO SCH (08:34)
[2018-02-24] MEDS: Enoxaparin 40 MG/0.4 ML Syringe SUBCUT SCH (08:37)
[2018-02-24] MEDS: Polyethylene Glycol 3350 Powder 17 GM Packet PO SCH (08:37)
[2018-02-25] MEDS: Enoxaparin 40 MG/0.4 ML Syringe SUBCUT SCH (09:00)
[2018-02-25] MEDS: predniSONE 10 MG Tab PO SCH (09:00)
[2018-02-25] MEDS: metFORMIN 500 MG Tab PO SCH (09:00)
[2018-02-25] MEDS: Folic Acid 1 MG Tab PO SCH (09:00)
[2018-02-25] MEDS: Polyethylene Glycol 3350 Powder 17 GM Packet PO SCH (09:01)
[2018-02-25] MEDS: sulfaSALAzine 500 MG Tab.EC PO SCH (09:01)
[2018-02-25] MEDS: Acetaminophen 500 MG Tab PO PRN (09:01)
[2018-02-25] MEDS: Acetaminophen/HYDROcodone 325-5 MG Tab PO PRN (16:46)
[2018-02-26] MEDS: sulfaSALAzine 500 MG Tab.EC PO SCH (08:00)
[2018-02-26] MEDS: Folic Acid 1 MG Tab PO SCH (08:01)
[2018-02-26] MEDS: Enoxaparin 40 MG/0.4 ML Syringe SUBCUT SCH (08:01)
[2018-02-26] MEDS: metFORMIN 500 MG Tab PO SCH (08:01)
[2018-02-26] MEDS: predniSONE 10 MG Tab PO SCH (08:01)
[2018-02-26] MEDS: Polyethylene Glycol 3350 Powder 17 GM Packet PO SCH (08:01)
[2018-02-26] MEDS: Acetaminophen 500 MG Tab PO PRN (08:02)
[2018-02-27] MEDS: Folic Acid 1 MG Tab PO SCH (08:32)
[2018-02-27] MEDS: Polyethylene Glycol 3350 Powder 17 GM Packet PO SCH (08:32)
[2018-02-27] MEDS: predniSONE 10 MG Tab PO SCH (08:32)
[2018-02-27] MEDS: sulfaSALAzine 500 MG Tab.EC PO SCH (08:32)
[2018-02-27] MEDS: metFORMIN 500 MG Tab PO SCH (08:32)
[2018-02-27] MEDS: Acetaminophen 500 MG Tab PO PRN (08:34)
--- NOTE | 2018-03-02 07:00 | DISCH ---
DISCHARGE DATE: 02/27/2018 REASON FOR HOSPITALIZATION: C4-C5 cervical fracture, nonsurgical, left hip surgical repair. HOSPITAL COURSE: Mr. Fredy Torrez is an 87-year-old male, admitted for rehab after C4-C5 neck fracture, left hip fracture. Neck fracture was stable, treated conservatively. Internal fixation of left femur fracture noted. History of rheumatoid arthritis, pulmonary fibrosis, and hypertension. Had an active hospital stay. PT was actively involved. Increasing ambulation, pain control, and was comfortable. Good progress throughout. Laboratory studies, sugars were satisfactory. PHYSICAL EXAMINATION: VITAL SIGNS: Upon discharge 36.8, 87, 112/70, 18, and 92%. GENERAL: Comfortable and cooperative. HEENT: Clear nasal discharge. Mouth and oropharynx clear. NECK: Benign. Thyroid small. Brace in place, neck. CHEST: Clear in all lung pereira. HEART: Regular without ectopy or significant murmur. ABDOMEN: Benign. MUSCULOSKELETAL: Surgical site of left hip unremarkable. Extremities were well perfused. Mild venous stasis changes. ASSESSMENT: Swing bed stay, rehab, C4-C5 cervical fracture, left hip fracture. PLAN: Discharge with Home Health. Cooperative care and well being. Home Health will be actively involved. Both OT/PT. Complementary care and well being, follow up with providers, surgical and primary. Addendum: 30-minute visit, discharge exam and discharge planning in completeness. /[id number] MIRELLA/JONNIE
== END 2018-02-27 13:17 | disposition home health service (06) | DRG 561 ==
LOC: FB.MS 11:49
PROVIDERS: ADMIT Family Medicine; ATTEND Family Medicine
DX: S72.142D Displaced intertrochanteric fracture of left femur, subsequent encounter for closed fracture with routine healing (principal); W19.XXXD Unspecified fall, subsequent encounter; S12.3 Fracture of fourth cervical vertebra; M06.9 Rheumatoid arthritis, unspecified; J84.10 Pulmonary fibrosis, unspecified; I10 Essential (primary) hypertension; J44.9 Chronic obstructive pulmonary disease, unspecified; H35.30 Unspecified macular degeneration; D50.0 Iron deficiency anemia secondary to blood loss (chronic); E11.9 Type 2 diabetes mellitus without complications; H91.90 Unspecified hearing loss, unspecified ear; Z98.890 Other specified postprocedural states; Z79.899 Other long term (current) drug therapy; Z79.52 Long term (current) use of systemic steroids; Z79.84 Long term (current) use of oral hypoglycemic drugs; Z96.653 Presence of artificial knee joint, bilateral
CPT/HCPCS: 36415; 80048; 82962; 83036; 85025; 85651; 94150; 97110-GO; 97110-GP; 97116-GP; 97161-GP; 97166-GO; 97530-GO; 97530-GP; 97535-GO; 97542-GO; A9270-GY; J1650

== ENCOUNTER 2018-12-07 10:19 | Inpatient (IN) | payer MEDICARE, OTHER ==
[2018-12-07] MEDS ORDERED: PEG 400/Propylene Glycol Ophth Soln 15 ML Bottle EYEBOTH PRN (14:19)
[2018-12-07] MEDS: traMADol 50 MG Tab PO PRN (14:50)
[2018-12-07] MEDS: Acetaminophen 500 MG Tab PO SCH ×2 (14:50→21:17)
--- NOTE | 2018-12-07 15:27 | PCM.HP ---
<Arti Bartholomew - Last Filed: 12/07/18 15:44> H&P History of Present Illness - General Date of Service: 12/07/18 Admit Problem/Dx: 88 year old male admitted to the hospital for therapy and pain control post total left hip arthroplasty. He fell and fractured his left hip last year, it was surgically repaired. However, he continued to have pain in the area so he was taken for a revision of that hip last week, during which he sustained a fracture to his femur. He is here for swing bed placement. Otherwise he lives at home, alone. He is normally able to do all ADLs on his own. He has been mostly using his wheelchair to get around for the last year due to pain and increased fear or a repeat fall. He is and has two sons. 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 Source of Information: Patient, Old Records History Limitations: Reports: No Limitations - History of Present Illness Location: Reports: Lower Extremity, Left Quality: Reports: Ache Severity: Mild Improves with: Reports: Rest Worsens with: Reports: Movement Left Middle Leg Pain Score (Numeric/FACES): 3 - Related Data Allergies/Adverse Reactions: Allergies Allergy/AdvReac Type Severity Reaction Status Date / Time No Known Allergies Allergy Verified 02/04/18 12:21 Home Medications: Home Meds Folic Acid 1 mg PO DAILY 10/13/17 [History] metFORMIN HCl [Metformin HCl] 500 mg PO WITHBREAKFAST 10/13/17 [History] predniSONE [Prednisone] 5 mg PO DAILY 10/13/17 [History] Acetaminophen [Tylenol Extra Strength] 1,000 mg PO TID 01/29/18 [History] Propylene Glycol/Peg 400 [Systane 0.3-0.4% Eye Drops] 1 drop EYEBOTH Q6H PRN [History] sulfaSALAzine [sulfaSALAzine DR] 500 mg PO DAILY 02/04/18 [History] Apixaban [Eliquis] 2.5 mg PO BID 12/07/18 [History] Calcium Carbonate [Calcium] 500 mg PO TIDMEALS 12/07/18 [History] Cholecalciferol (Vitamin D3) [Vitamin D3] 2,000 unit PO DAILY 12/07/18 [History] Docusate Sodium [Stool Softener] 100 mg PO DAILY 12/07/18 [History] Mv-Mn/Lutein/Zeax/Bilber/Hb277 [Macular Health Formula Capsule] 1 cap PO DAILY 12/07/18 [History] traMADol [Ultram] 50 mg PO Q4H PRN 12/07/18 [History] Past Medical History - Past Health History Medical/Surgical History: Denies Medical/Surgical History HEENT History: Reports: Cataract, Hard of Hearing, Macular Degeneration Other HEENT History: L retinal detachment. Respiratory History: Reports: COPD, Pulmonary Fibrosis Musculoskeletal History: Reports: Arthritis Other Musculoskeletal History: neck fx C6 Neurological History: Reports: Other (See Below) Other Neuro History: Back injury from with an incident para-trooping in the service. Endocrine/Metabolic History: Reports: Diabetes, Type II - Infectious Disease History Infectious Disease History: Reports: Chicken Pox, Measles, Mumps Other Infectious Disease History: Patient not sure if he had Rubella or Measles. - Past Surgical History HEENT Surgical History: Reports: Cataract Surgery, Detached Retina Other HEENT Surgeries/Procedures: detached retina in L eye Musculoskeletal Surgical History: Reports: Knee Replacement, Other (See Below) Other Musculoskeletal Surgeries/Procedures:: Left and right knee replacement. Left hip repair. Cervical fx. Social & Family History - Family History Family Medical History: Noncontributory Respiratory: Reports: Asthma (mother) - Tobacco Use Smoking Status *Q: Former Smoker Tobacco Use Within Last Twelve Months: Cigarettes Used Tobacco, but Quit: Yes Month/Year Tobacco Last Used: 1951 Second Hand Smoke Exposure: No - Caffeine Use Caffeine Use: Reports: Coffee Other Caffeine Use: 1 cup/day H&P Review of Systems - Review of Systems: Review Of Systems: See Below General: Reports: Weakness. Denies: Fever, Chills HEENT: Reports: No Symptoms Pulmonary: Denies: Shortness of Breath Cardiovascular: Denies: Chest Pain, Palpitations Gastrointestinal: Denies: Abdominal Pain, Constipation, Diarrhea Genitourinary: Reports: Frequency (reports he has been urinating every 45-60 minutes). Denies: Dysuria, Burning, Urgency, Hematuria Musculoskeletal: Reports: Leg Pain (left hip) Skin: Reports: Pallor Psychiatric: Denies: Depression, Anxiety Neurological: Denies: Confusion Exam - Exam Exam: See Below - Vital Signs Vital Signs: Last Vital Signs Temp 36.4 C 12/07/18 12:39 Pulse 99 06/24/19 12:39 Resp 20 12/07/18 12:39 BP 118/62 12/07/18 12:39 Pulse Ox 93 L 12/07/18 12:39 Weight: 229 lb 9.6 oz - Exam Quality Assessment: DVT Prophylaxis. No: Supplemental Oxygen General: Alert, Oriented HEENT: EOMI, Pupils Reactive, TMs Clear Neck: Supple, Trachea Midline Lungs: Clear to Auscultation, Normal Respiratory Effort Cardiovascular: Regular Rate, Regular Rhythm GI/Abdominal Exam: Normal Bowel Sounds, Soft, Non-Tender, No Distention, No Mass Back Exam: No: CVA Tenderness (R), CVA Tenderness (L) Extremities: Normal Inspection, Pedal Edema (1 + pitting to left lower extremity. Dressing to left hip is clean, dry, and intact ) Peripheral Pulses: 2+: Dorsalis Pedis (L) Skin: Warm, Dry Neuro Extensive - Mental Status: Alert, Oriented x3 Psychiatric: Alert - Problem List (1) Femur fracture, left SNOMED Code(s): 10088118 ICD Code: S72.92XA - UNSP FRACTURE OF LEFT FEMUR, INIT ENCNTR FOR CLOSED FRACTURE Status: Acute Current Visit: Yes (2) Post-op pain SNOMED Code(s): 019805163 ICD Code: G89.18 - OTHER ACUTE POSTPROCEDURAL PAIN Status: Acute Current Visit: Yes (3) Diabetes type 2, controlled SNOMED Code(s): 62874717, 025730240 ICD Code: E11.9 - TYPE 2 DIABETES MELLITUS WITHOUT COMPLICATIONS Status: Acute Current Visit: No Qualifiers: Diabetes mellitus skilled nursing insulin use: without predatory animal exterminator use Diabetes mellitus complication status: without complication Qualified Code(s): E11.9 - Type 2 diabetes mellitus without complications (4) Pulmonary fibrosis SNOMED Code(s): 23424999 ICD Code: J84.10 - PULMONARY FIBROSIS, UNSPECIFIED Status: Chronic Current Visit: No (5) Rheumatoid arthritis SNOMED Code(s): 00777523 ICD Code: M06.9 - RHEUMATOID ARTHRITIS, UNSPECIFIED Status: Chronic Current Visit: No Qualifiers: Rheumatoid factor presence: unspecified presence Problem List Initiated/Reviewed/Updated: Yes Orders Last 24hrs: 1. Full Code 2. Regular diet 3. Up with assistance, continue with PT/OT 4. Eliquis for DVT prophylaxis 5. Pain control with Tylenol and Tramadol <Wojciech Johnston - Last Filed: 12/07/18 15:46> H&P History of Present Illness - General Admit Problem/Dx: Admission Diagnosis/Problem Admission Diagnosis/Problem History of surgery Exam - Vital Signs Vital Signs: Last Vital Signs Temp 97.5 F 12/07/18 12:39 Pulse 99 12/07/18 12:39 Resp 20 12/07/18 12:39 BP 118/62 12/07/18 12:39 Pulse Ox 93 L 12/07/18 12:39 Orders Last 24hrs: Active Orders 24 hr Category Date Time Status Patient Status [ADT] Routine ADT 12/07/18 12:39 Active Communication Order [RC] ROUTINE Care 12/07/18 14:18 Active Height and Weight [RC] .Mon06 Care 12/07/18 12:39 Active Oxygen Therapy [RC] PRN Care 12/07/18 12:39 Active Up With Assistance [RC] ASDIRECTED Care 12/07/18 12:39 Active VTE/DVT Education [RC] Per Unit Routine Care 12/07/18 12:39 Active Vital Signs [RC] DAILY Care 12/07/18 12:39 Active OT Evaluation and Treatment [CONS] Routine Cons 12/07/18 12:39 Active PT Evaluation and Treatment [CONS] Routine Cons 12/07/18 12:39 Active Carbohydrate Counting [Consistent Carbohydrate Diet] [ Diet 12/07/18 Dinner Active DIET] Acetaminophen [Tylenol Extra Strength] Med 12/07/18 14:30 Active 1,000 mg PO TID Apixaban [Eliquis] Med 12/07/18 21:00 Active 2.5 mg PO BID Calcium Carbonate [Oyster Shell Calcium] Med 12/07/18 18:00 Active 500 mg PO TIDMEALS Cholecalciferol (Vitamin D3) [Vitamin D3] Med 12/08/18 09:00 Active 2,000 units PO DAILY Docusate Sodium [Colace] Med 12/08/18 09:00 Active 100 mg PO DAILY Folic Acid Med 12/08/18 09:00 Active 1 mg PO DAILY Lutein/Min/Vit C/Vit E Acetate [Ocuvite Lutein] Med 12/08/18 09:00 Active 1 each PO DAILY PEG 400/Propylene Glycol [Systane Lubricant] Med 12/07/18 14:19 Active 0 ml EYEBOTH Q6H PRN metFORMIN [Glucophage] Med 12/08/18 08:00 Active 500 mg PO WITHBREAKFAST predniSONE Med 12/08/18 09:00 Active 5 mg PO DAILY sulfaSALAzine [sulfaSALAzine DR] Med 12/08/18 09:00 Active 500 mg PO DAILY traMADol [Ultram] Med 12/07/18 14:19 Active 50 mg PO Q4H PRN ASIF Hose [Antiembolic Hose] [OM.PC] Routine Oth 12/07/18 14:23 Ordered Resuscitation Status Routine Resus Stat 12/07/18 12:39 Ordered Medication Orders Acetaminophen (Tylenol Extra Strength) 1,000 mg PO TID [facility] Last Admin: 12/07/18 14:50 Dose: 1,000 mg Apixaban (Eliquis) 2.5 mg PO BID [facility] Calcium Carbonate/Glycine (Oyster Shell Calcium) 500 mg PO TIDMEALS [facility] Cholecalciferol (Vitamin D3) 2,000 units PO DAILY [facility] Docusate Sodium (Colace) 100 mg PO DAILY [facility] Folic Acid (Folic Acid) 1 mg PO DAILY [facility] Metformin HCl (Glucophage) 500 mg PO WITHBREAKFAST JOMAR Prednisone (Prednisone) 5 mg PO DAILY [facility] Propylene Glycol (Systane Lubricant) 0 ml EYEBOTH Q6H PRN PRN Reason: Dry Eyes Sulfasalazine (Sulfasalazine Dr) 500 mg PO DAILY [facility] Tramadol HCl (Ultram) 50 mg PO Q4H PRN PRN Reason: pain 4-10/10 Last Admin: 12/07/18 14:50 Dose: 50 mg Vit C/Vit E/Zinc/Copper/Lutein (Ocuvite Lutein) 1 each PO DAILY [facility] Assessment/Plan Comment:: I attest that I saw this patient and examined the patient.
[2018-12-07] MEDS: Calcium Carbonate 500 MG Tablet PO SCH (18:14)
[2018-12-07] MEDS: Apixaban 5 MG Tab PO SCH (21:18)
[2018-12-08] MEDS: traMADol 50 MG Tab PO PRN ×2 (06:02→19:35)
[2018-12-08] MEDS ORDERED: metFORMIN 500 MG Tab PO SCH (08:00)
[2018-12-08] MEDS: Calcium Carbonate 500 MG Tablet PO SCH ×4 (08:29→18:15)
[2018-12-08] MEDS: Apixaban 5 MG Tab PO SCH ×2 (08:30→18:13)
[2018-12-08] MEDS: Acetaminophen 500 MG Tab PO SCH ×3 (08:31→18:13)
[2018-12-08] MEDS ORDERED: Cholecalciferol (Vitamin D3) 25 MCG Tab PO SCH (09:00)
[2018-12-08] MEDS ORDERED: predniSONE 5 MG Tab PO SCH (09:00)
[2018-12-08] MEDS ORDERED: sulfaSALAzine 500 MG Tab.EC PO SCH (09:00)
[2018-12-08] MEDS ORDERED: Folic Acid 1 MG Tab PO SCH (09:00)
[2018-12-08] MEDS ORDERED: Lutein/Minerals/Vitamin C/Vitamin E Acetate Cap PO SCH (09:00)
[2018-12-08] MEDS ORDERED: Docusate Sodium 100 MG Cap PO SCH (09:00)
[2018-12-09] MEDS: traMADol 50 MG Tab PO PRN ×2 (04:45→21:00)
[2018-12-09] MEDS: Folic Acid 1 MG Tab PO SCH (06:06)
[2018-12-09] MEDS: Docusate Sodium 100 MG Cap PO SCH (06:06)
[2018-12-09] MEDS: Apixaban 5 MG Tab PO SCH ×2 (06:06→18:13)
[2018-12-09] MEDS: metFORMIN 500 MG Tab PO SCH (06:06)
[2018-12-09] MEDS: predniSONE 5 MG Tab PO SCH (06:07)
[2018-12-09] MEDS: Cholecalciferol (Vitamin D3) 25 MCG Tab PO SCH (06:07)
[2018-12-09] MEDS: sulfaSALAzine 500 MG Tab.EC PO SCH (06:07)
[2018-12-09] MEDS: Calcium Carbonate 500 MG Tablet PO SCH ×3 (06:07→18:14)
[2018-12-09] MEDS: Lutein/Minerals/Vitamin C/Vitamin E Acetate Cap PO SCH (06:07)
[2018-12-09] MEDS: Acetaminophen 500 MG Tab PO SCH ×3 (06:08→18:13)
[2018-12-09] MEDS ORDERED: Furosemide 40 MG Tab PO ONE (08:00)
[2018-12-10] MEDS: traMADol 50 MG Tab PO PRN ×2 (01:09→20:34)
[2018-12-10] MEDS: Docusate Sodium 100 MG Cap PO SCH (06:12)
[2018-12-10] MEDS: Apixaban 5 MG Tab PO SCH ×2 (06:13→20:30)
[2018-12-10] MEDS: metFORMIN 500 MG Tab PO SCH (06:13)
[2018-12-10] MEDS: Folic Acid 1 MG Tab PO SCH (06:13)
[2018-12-10] MEDS: Calcium Carbonate 500 MG Tablet PO SCH ×3 (06:14→20:30)
[2018-12-10] MEDS: Lutein/Minerals/Vitamin C/Vitamin E Acetate Cap PO SCH (06:14)
[2018-12-10] MEDS: predniSONE 5 MG Tab PO SCH (06:14)
[2018-12-10] MEDS: sulfaSALAzine 500 MG Tab.EC PO SCH (06:14)
[2018-12-10] MEDS: Cholecalciferol (Vitamin D3) 25 MCG Tab PO SCH (06:15)
[2018-12-10] MEDS: Acetaminophen 500 MG Tab PO SCH ×3 (06:15→20:29)
[2018-12-11] MEDS: Docusate Sodium 100 MG Cap PO SCH ×2 (04:58→04:59)
[2018-12-11] MEDS: Apixaban 5 MG Tab PO SCH ×2 (05:00→18:04)
[2018-12-11] MEDS: metFORMIN 500 MG Tab PO SCH (05:00)
[2018-12-11] MEDS: Lutein/Minerals/Vitamin C/Vitamin E Acetate Cap PO SCH (05:00)
[2018-12-11] MEDS: Folic Acid 1 MG Tab PO SCH (05:00)
[2018-12-11] MEDS: sulfaSALAzine 500 MG Tab.EC PO SCH (05:01)
[2018-12-11] MEDS: Acetaminophen 500 MG Tab PO SCH ×3 (05:01→18:05)
[2018-12-11] MEDS: Calcium Carbonate 500 MG Tablet PO SCH ×3 (05:01→18:05)
[2018-12-11] MEDS: Cholecalciferol (Vitamin D3) 25 MCG Tab PO SCH (05:01)
[2018-12-11] MEDS: predniSONE 5 MG Tab PO SCH (05:01)
[2018-12-11] MEDS: Furosemide 20 MG Tab PO SCH (11:36)
--- NOTE | 2018-12-11 12:35 | PN ---
DATE SEEN: 12/11/2018 SUBJECTIVE: Fredy Torrez is an 88-year-old male, admitted on 12/07/2018 for therapy and pain control. He had a fracture in January 2018, continued to have pain, and required replacement. Dr. Bauer, provider of record. Second surgical date 11/02/2018. Lengthy stay expected. PHYSICAL EXAMINATION: GENERAL: Appears comfortable. Good spirits. VITAL SIGNS: Stable. 36.5, 103 kg, 106/52, 70, 17, and 96%. CHEST: Clear in all lung pereira. No adventitious sounds. HEART: No ectopy or murmur. ABDOMEN: Benign. Surgical site healing well. PLAN: Continue present care. Pain control. Therapy in place. /[id number] MIRELLA/JONNIE
[2018-12-12] MEDS: traMADol 50 MG Tab PO PRN ×2 (01:31→22:16)
[2018-12-12] MEDS: Lutein/Minerals/Vitamin C/Vitamin E Acetate Cap PO SCH (06:01)
[2018-12-12] MEDS: Acetaminophen 500 MG Tab PO SCH ×3 (06:01→17:57)
[2018-12-12] MEDS: Docusate Sodium 100 MG Cap PO SCH (06:01)
[2018-12-12] MEDS: Calcium Carbonate 500 MG Tablet PO SCH ×3 (06:01→17:56)
[2018-12-12] MEDS: sulfaSALAzine 500 MG Tab.EC PO SCH (06:01)
[2018-12-12] MEDS: Folic Acid 1 MG Tab PO SCH (06:01)
[2018-12-12] MEDS: metFORMIN 500 MG Tab PO SCH (06:02)
[2018-12-12] MEDS: predniSONE 5 MG Tab PO SCH (06:02)
[2018-12-12] MEDS: Apixaban 5 MG Tab PO SCH ×2 (06:02→17:56)
[2018-12-12] MEDS: Cholecalciferol (Vitamin D3) 25 MCG Tab PO SCH (06:02)
[2018-12-12] MEDS: Furosemide 20 MG Tab PO SCH (10:07)
--- NOTE | 2018-12-12 11:33 | PN ---
DATE SEEN: 12/12/2018 SUBJECTIVE: Mr. Torrez is an 88-year-old male in [facility] for rehab. Had a left total hip arthroplasty, followup of previous fracture of 01/2018. Doing well. Physical Therapy happy with outcome and well being. LABORATORY STUDIES: None. OBJECTIVE: VITAL SIGNS: 36.5, 76, 106/52, 17, and 96% on room air. GENERAL: In good spirits. NECK: Benign. Thyroid small. CHEST: Clear in all lung pereira. HEART: Occasional ectopy. Soft murmur. SKIN: Left surgical hip wound intact. ASSESSMENT: Left hip arthroplasty with postoperative care. PLAN: PT happy with outcome, lift chair at home, all appears to be going well. /[id number] /JONNIE
[2018-12-13] MEDS: traMADol 50 MG Tab PO PRN (03:42)
[2018-12-13] MEDS: Docusate Sodium 100 MG Cap PO SCH (06:04)
[2018-12-13] MEDS: sulfaSALAzine 500 MG Tab.EC PO SCH (06:04)
[2018-12-13] MEDS: Folic Acid 1 MG Tab PO SCH (06:04)
[2018-12-13] MEDS: Calcium Carbonate 500 MG Tablet PO SCH ×3 (06:04→19:29)
[2018-12-13] MEDS: Acetaminophen 500 MG Tab PO SCH ×3 (06:05→19:29)
[2018-12-13] MEDS: Cholecalciferol (Vitamin D3) 25 MCG Tab PO SCH (06:05)
[2018-12-13] MEDS: predniSONE 5 MG Tab PO SCH (06:05)
[2018-12-13] MEDS: Lutein/Minerals/Vitamin C/Vitamin E Acetate Cap PO SCH (06:05)
[2018-12-13] MEDS: metFORMIN 500 MG Tab PO SCH (06:05)
[2018-12-13] MEDS: Apixaban 5 MG Tab PO SCH ×2 (06:05→19:28)
[2018-12-13] MEDS: Furosemide 20 MG Tab PO SCH (09:45)
[2018-12-13] MEDS ORDERED: Sodium Chloride 0.9% 10 ML Syringe FLUSH PRN (18:35)
[2018-12-13] MEDS ORDERED: Morphine 4 MG/ML Syringe IVPUSH ONE (18:37)
[2018-12-13] MEDS ORDERED: Ondansetron 4 MG/2 ML SDV IVPUSH ONE (18:37)
[2018-12-13] MEDS ORDERED: Sodium Chloride 0.9% 1,000 ML IV SCH (18:45)
[2018-12-13] MEDS ORDERED: Morphine 4 MG/ML Syringe ONE (19:58)
--- NOTE | 2018-12-13 20:16 | PCM.SN ---
- Free Text/Narrative Note: CHIEF COMPLAINT: Pop in left hip with pain HISTORY OF PRESENT ILLNESS: 88-year-old male patient who was sitting on the toiletand he turned to wipe his bottom and felt a pop in his left hip with immediate pain and inability to move his left hip. This occurred approximately 6:30 PM tonight. He has an 8-10/10 level of pain in his left hip and thigh area and is unable to move his left leg. There was no trauma to the area. He has had no nausea or vomiting. He's had no trouble breathing. He did eat supper tonight an approximate 6 PM.he is status post total left hip replacement that was complicated by a femoral shaft fracture on 12/03/[address] Lakhani and at [facility] in [place]. There are no other associated signs or symptoms. There are no other modifying factors. PAST MEDICAL HISTORY; Rheumatoid arthritis Pulmonary fibrosis COPD Diabetes mellitus Osteoarthritis Questionable inflammatory bowel disease SOCIAL HISTORY: He is a nonsmoker since 1951. He is retired SURGICAL HISTORY: Bilateral total knee replacements Left hip open reduction internal fixation Left total hip replacement on 12/03/2018 Cervical fracture repair, C6. REVIEW OF SYSTEMS: Constitutional: No fevers. No chills. HEENT: No nasal congestion. No sore throat. Respiratory: No cough. No difficulty breathing. Cardiovascular: No chest pain. No palpitations. GI: No nausea and no vomiting. : No dysuria. No hematuria. Musculoskeletal: Left hip pain and shortening of leg. Skin: No rashes. No diaphoresis. Neurologic: Normal sensation in the toes of his left foot. Endocrinologic: Patient ate supper at 6 PM tonight, 12/13/2018. Hematologic: The patient is on Eliquis currently for DVT prophylaxis. PHYSICAL EXAMINATION: Vital signs:Temp is 36.6C., Pulse is 86., Respiratory rate is 18., Blood pressure is 120/86., O2 saturation on room air is 96%. General: Well-developed, well-nourished elderly male who is awake and alert. He is in acute pain. HEENT: The pupils are equal round and reactive to light. The sclerae aren't icteric. The x-ray department movements are intact. The pharynx is moist. Lungs: Bilateral breath sounds are equal. No respiratory distress. No wheezes. Heart: Regular rate and rhythm without murmur. Abdomen: Soft and nontender. No masses. Extremities: There is pain with palpation over his left hip with an obvious deformity with the left lower extremity internally rotated and shortened. Radial and dorsalis pedis pulses are present and symmetric bilaterally. Skin: There is a dressing on his left hip without apparent drainage. There is no erythema or rash. Neurologic: He is able to move his left foot and ankle well. He has normal sensation in the left foot and ankle. There are no focal deficits. DIAGNOSTIC DATA: left hip and pelvis x-ray showed a dislocation of the prosthetic left hip that is superiorly and posteriorly dislocated. EVENT COURSE:patient had an IV established and was given morphine 4 mg IV and Zofran 4 mg IV. He was also made nothing by mouth at this time and had IV normal saline established at 100 mL per hour. He was transported to x-ray department via his bed and x-rays of the patient's left hip and pelvis were performed which showed a dislocation of the left prosthetic hip. I discussed this with the patient and with the patient's family. He will need to have this reduced and orthopedic specially services for this. The family and the patient wanted me to discuss his case with the orthopedist at [facility] in [place]. I discussed the patient's case with the transfer line and she discussed the case with Dr. Mccann, orthopedist instructional technology instructor for Dr. Fermin, and he referred me to the emergency physician at [facility] in [place] to transfer the patient to the emergency department. I discussed the patient's case with Dr. Sumner, emergency physician at [facility] in [place], and he has agreed to accept the patient in transfer. The patient will be transferred via ambulance to the emergency department at [facility]. ASSESSMENT: Acute left prosthetic hip dislocation. PLAN: The patient is being transferred to the emergency department at [facility] for treatment of his left prosthetic hip dislocation. He will be given an additional 4 mg morphine IVand also pain medication as per the EMS crew transporting the patient en route. He will be maintained at an NPO status.
== END 2018-12-13 20:43 | DRG 560 ==
LOC: FB.MS 12:31
PROVIDERS: ADMIT Family Medicine; ATTEND Family Medicine
DX: Z47.1 Aftercare following joint replacement surgery (principal); T84.021A Dislocation of internal left hip prosthesis, initial encounter; Z96.642 Presence of left artificial hip joint; Z98.890 Other specified postprocedural states; G89.18 Other acute postprocedural pain; E11.9 Type 2 diabetes mellitus without complications; Z79.84 Long term (current) use of oral hypoglycemic drugs; M19.90 Unspecified osteoarthritis, unspecified site; M06.9 Rheumatoid arthritis, unspecified; H91.90 Unspecified hearing loss, unspecified ear; J84.10 Pulmonary fibrosis, unspecified; J44.9 Chronic obstructive pulmonary disease, unspecified; Z87.891 Personal history of nicotine dependence; H35.30 Unspecified macular degeneration; Z96.653 Presence of artificial knee joint, bilateral; X50.1XXA Overexertion from prolonged static or awkward postures, initial encounter; Y92.231 Patient bathroom in hospital as the place of occurrence of the external cause
CPT/HCPCS: 73502-LT; 97110-GP; 97161-GP; 97166-GO; 97530-GO; 97535-GO; 97542-GO; A9270-GY; J2270; J2405; J7030

== ENCOUNTER 2018-12-15 09:23 | Inpatient (IN) | payer MEDICARE, OTHER ==
[2018-12-15] MEDS ORDERED: traMADol 50 MG Tab PO PRN (12:32)
[2018-12-15] MEDS: Acetaminophen 500 MG Tab PO SCH ×2 (14:39→20:19)
[2018-12-15] MEDS: Polyethylene Glycol 3350 Powder 17 GM Packet PO SCH (20:19)
[2018-12-15] MEDS: Apixaban 5 MG Tab PO SCH (20:19)
[2018-12-16] MEDS: Apixaban 5 MG Tab PO SCH ×2 (08:59→20:04)
[2018-12-16] MEDS: Polyethylene Glycol 3350 Powder 17 GM Packet PO SCH (08:59)
[2018-12-16] MEDS: Acetaminophen 500 MG Tab PO SCH ×3 (09:00→20:04)
[2018-12-16] MEDS: metFORMIN 500 MG Tab PO SCH (09:00)
[2018-12-16] MEDS ORDERED: PEG 400/Propylene Glycol Ophth Soln 15 ML Bottle EYEBOTH PRN (10:27)
[2018-12-16] MEDS ORDERED: Docusate Sodium 100 MG Cap PO SCH (10:30)
--- NOTE | 2018-12-16 12:01 | PN ---
DATE SEEN: 12/16/2018 SUBJECTIVE: Mr. Torrez was re-admitted yesterday after a left hip dislocation. Doing well. Pain appears to be controlled. Medications on board appropriate. OBJECTIVE: CHEST: Clear all lung pereira. HEART: No ectopy or murmur. ABDOMEN: Benign. Wound healing well. IMPRESSION: Rehab, left hip surgical intervention. PLAN: Intervention probably towards the end of the next week. /[id number] /JONNIE
--- NOTE | 2018-12-16 13:40 | HP ---
ADMISSION DATE: 12/15/2018 HISTORY OF PRESENT ILLNESS: Fredy Torrez is an 88-year-old gentleman, who was re-admitted to [facility] swing bed. He had been in swing bed for left hip rehab intervention. He had spontaneous re- subluxation of the surgical site, was transferred back to [facility] for revision on 12/13/18, discharged on 12/15/18, and back today for followup. MEDICATIONS: Please see med recon list, which includes: 1. Calcium carbonate. 2. Folic acid. 3. Furosemide. 4. Macular Health capsules. 5. Metformin. 6. Prednisone. 7. Stool softener. 8. Sulfasalazine. 9. Vitamin D3. 10.Eliquis. 11.MiraLax. 12.Tramadol. Past health, social history, and well being clearly defined. PHYSICAL EXAMINATION: VITAL SIGNS: 36.8, 93/52, 20, 96, 36.8, 103 kg. GENERAL: In good spirits. NECK: Benign. Thyroid small. CHEST: Clear in all lung pereira. No adventitious sounds. HEART: No ectopy or murmur. ABDOMEN: Rotund. Surgical site intact. ASSESSMENT: Reduction of recent left hip dislocation. PLAN: We will continue with therapy, medications and treatment timely and appropriate. /[id number] MIRELLA/JONNIE
[2018-12-16] MEDS: Docusate Sodium 100 MG Cap PO SCH ×2 (15:40→20:03)
[2018-12-16] MEDS: predniSONE 5 MG Tab PO SCH (15:41)
[2018-12-16] MEDS: sulfaSALAzine 500 MG Tab.EC PO SCH (15:41)
[2018-12-16] MEDS: Calcium Carbonate 500 MG Tablet PO SCH ×2 (15:41→19:18)
[2018-12-17] MEDS: metFORMIN 500 MG Tab PO SCH (08:54)
[2018-12-17] MEDS: Calcium Carbonate 500 MG Tablet PO SCH ×3 (08:54→18:31)
[2018-12-17] MEDS: Apixaban 5 MG Tab PO SCH ×2 (08:54→20:36)
[2018-12-17] MEDS: Docusate Sodium 100 MG Cap PO SCH ×2 (08:54→20:37)
[2018-12-17] MEDS: Polyethylene Glycol 3350 Powder 17 GM Packet PO SCH (08:55)
[2018-12-17] MEDS: Furosemide 20 MG Tab PO SCH (08:55)
[2018-12-17] MEDS: predniSONE 5 MG Tab PO SCH (08:55)
[2018-12-17] MEDS: Folic Acid 1 MG Tab PO SCH (08:55)
[2018-12-17] MEDS: sulfaSALAzine 500 MG Tab.EC PO SCH (08:55)
[2018-12-17] MEDS: Cholecalciferol (Vitamin D3) 25 MCG Tab PO SCH (08:56)
[2018-12-17] MEDS: Acetaminophen 500 MG Tab PO SCH ×3 (08:56→20:36)
[2018-12-18] MEDS: metFORMIN 500 MG Tab PO SCH (07:17)
[2018-12-18] MEDS: Calcium Carbonate 500 MG Tablet PO SCH ×3 (07:17→17:17)
[2018-12-18] MEDS: Apixaban 5 MG Tab PO SCH ×2 (08:17→21:14)
[2018-12-18] MEDS: Docusate Sodium 100 MG Cap PO SCH ×2 (08:17→21:15)
[2018-12-18] MEDS: Polyethylene Glycol 3350 Powder 17 GM Packet PO SCH (08:18)
[2018-12-18] MEDS: Folic Acid 1 MG Tab PO SCH (08:18)
[2018-12-18] MEDS: predniSONE 5 MG Tab PO SCH (08:18)
[2018-12-18] MEDS: Cholecalciferol (Vitamin D3) 25 MCG Tab PO SCH (08:18)
[2018-12-18] MEDS: sulfaSALAzine 500 MG Tab.EC PO SCH (08:18)
[2018-12-18] MEDS: Furosemide 20 MG Tab PO SCH (08:18)
[2018-12-18] MEDS: Acetaminophen 500 MG Tab PO SCH ×3 (08:35→21:15)
[2018-12-19] MEDS: Apixaban 5 MG Tab PO SCH ×2 (09:13→21:02)
[2018-12-19] MEDS: Docusate Sodium 100 MG Cap PO SCH ×2 (09:13→21:03)
[2018-12-19] MEDS: metFORMIN 500 MG Tab PO SCH (09:13)
[2018-12-19] MEDS: Calcium Carbonate 500 MG Tablet PO SCH ×3 (09:13→17:16)
[2018-12-19] MEDS: predniSONE 5 MG Tab PO SCH (09:14)
[2018-12-19] MEDS: Folic Acid 1 MG Tab PO SCH (09:14)
[2018-12-19] MEDS: Polyethylene Glycol 3350 Powder 17 GM Packet PO SCH (09:14)
[2018-12-19] MEDS: Furosemide 20 MG Tab PO SCH (09:14)
[2018-12-19] MEDS: Acetaminophen 500 MG Tab PO SCH ×3 (09:15→21:03)
[2018-12-19] MEDS: sulfaSALAzine 500 MG Tab.EC PO SCH (09:16)
[2018-12-19] MEDS: Cholecalciferol (Vitamin D3) 25 MCG Tab PO SCH (09:16)
[2018-12-20] MEDS: Apixaban 5 MG Tab PO SCH ×2 (08:06→20:34)
[2018-12-20] MEDS: metFORMIN 500 MG Tab PO SCH (08:06)
[2018-12-20] MEDS: Calcium Carbonate 500 MG Tablet PO SCH ×3 (08:06→17:36)
[2018-12-20] MEDS: Docusate Sodium 100 MG Cap PO SCH ×2 (08:06→20:35)
[2018-12-20] MEDS: sulfaSALAzine 500 MG Tab.EC PO SCH (08:07)
[2018-12-20] MEDS: Furosemide 20 MG Tab PO SCH (08:07)
[2018-12-20] MEDS: Polyethylene Glycol 3350 Powder 17 GM Packet PO SCH (08:07)
[2018-12-20] MEDS: predniSONE 5 MG Tab PO SCH (08:07)
[2018-12-20] MEDS: Acetaminophen 500 MG Tab PO SCH ×3 (08:07→20:34)
[2018-12-20] MEDS: Folic Acid 1 MG Tab PO SCH (08:07)
[2018-12-20] MEDS: Cholecalciferol (Vitamin D3) 25 MCG Tab PO SCH (08:08)
[2018-12-21] MEDS: Calcium Carbonate 500 MG Tablet PO SCH ×3 (08:47→17:11)
[2018-12-21] MEDS: metFORMIN 500 MG Tab PO SCH (08:47)
[2018-12-21] MEDS: Apixaban 5 MG Tab PO SCH ×2 (08:47→20:54)
[2018-12-21] MEDS: predniSONE 5 MG Tab PO SCH (08:48)
[2018-12-21] MEDS: sulfaSALAzine 500 MG Tab.EC PO SCH (08:48)
[2018-12-21] MEDS: Acetaminophen 500 MG Tab PO SCH ×3 (08:48→20:53)
[2018-12-21] MEDS: Folic Acid 1 MG Tab PO SCH (08:48)
[2018-12-21] MEDS: Furosemide 20 MG Tab PO SCH (08:48)
[2018-12-21] MEDS: Cholecalciferol (Vitamin D3) 25 MCG Tab PO SCH (08:49)
[2018-12-21] MEDS: Polyethylene Glycol 3350 Powder 17 GM Packet PO SCH (08:49)
[2018-12-21] MEDS: Docusate Sodium 100 MG Cap PO SCH ×2 (08:49→20:53)
[2018-12-22] MEDS: Calcium Carbonate 500 MG Tablet PO SCH ×3 (07:56→18:40)
[2018-12-22] MEDS: metFORMIN 500 MG Tab PO SCH (07:56)
[2018-12-22] MEDS: predniSONE 5 MG Tab PO SCH (08:03)
[2018-12-22] MEDS: Folic Acid 1 MG Tab PO SCH (08:03)
[2018-12-22] MEDS: Furosemide 20 MG Tab PO SCH (08:03)
[2018-12-22] MEDS: Apixaban 5 MG Tab PO SCH ×2 (08:03→20:24)
[2018-12-22] MEDS: Acetaminophen 500 MG Tab PO SCH ×3 (08:04→20:24)
[2018-12-22] MEDS: Cholecalciferol (Vitamin D3) 25 MCG Tab PO SCH (08:04)
[2018-12-22] MEDS: sulfaSALAzine 500 MG Tab.EC PO SCH (08:04)
[2018-12-22] MEDS: Docusate Sodium 100 MG Cap PO SCH ×2 (08:04→20:24)
[2018-12-22] MEDS: Polyethylene Glycol 3350 Powder 17 GM Packet PO SCH (08:04)
[2018-12-23] MEDS: metFORMIN 500 MG Tab PO SCH (07:48)
[2018-12-23] MEDS: Calcium Carbonate 500 MG Tablet PO SCH ×3 (07:48→17:38)
[2018-12-23] MEDS: Polyethylene Glycol 3350 Powder 17 GM Packet PO SCH (08:37)
[2018-12-23] MEDS: Acetaminophen 500 MG Tab PO SCH ×3 (08:39→20:43)
[2018-12-23] MEDS: Folic Acid 1 MG Tab PO SCH (08:39)
[2018-12-23] MEDS: predniSONE 5 MG Tab PO SCH (08:39)
[2018-12-23] MEDS: sulfaSALAzine 500 MG Tab.EC PO SCH (08:39)
[2018-12-23] MEDS: Furosemide 20 MG Tab PO SCH (08:39)
[2018-12-23] MEDS: Apixaban 5 MG Tab PO SCH ×2 (08:39→20:42)
[2018-12-23] MEDS: Docusate Sodium 100 MG Cap PO SCH ×2 (08:39→20:42)
[2018-12-23] MEDS: Cholecalciferol (Vitamin D3) 25 MCG Tab PO SCH (08:40)
--- NOTE | 2018-12-23 08:54 | PCM.PN ---
- General Info Date of Service: 12/23/18 Admission Dx/Problem (Free Text): Patient without complaints. He has no hip pain and ready to be discharged when he can get out here. - Patient Data Vitals - Most Recent: Last Vital Signs Temp 97.6 F 12/22/18 07:15 Pulse 68 12/22/18 07:15 Resp 18 12/22/18 07:15 BP 124/59 L 12/22/18 07:15 Pulse Ox 96 12/22/18 07:15 Weight - Most Recent: 220 lb 4 oz Lab Results Last 24 Hours: Laboratory Results - last 24 hr 12/22/18 12/22/18 12/23/18 Range/Units 06:01 16:59 06:05 POC Glucose 106 100 106 (80-116) mg/dL Med Orders - Current: Current Medications Acetaminophen (Tylenol Extra Strength) 1,000 mg PO TID [facility] Last Admin: 12/23/18 08:39 Dose: 1,000 mg Apixaban (Eliquis) 2.5 mg PO BID [facility] Stop: 01/07/19 21:01 Last Admin: 12/23/18 08:39 Dose: 2.5 mg Calcium Carbonate/Glycine (Oyster Shell Calcium) 500 mg PO TIDMEALS [facility] Last Admin: 12/23/18 07:48 Dose: 500 mg Cholecalciferol (Vitamin D3) 50 mcg PO DAILY [facility] Last Admin: 12/23/18 08:40 Dose: 50 mcg Docusate Sodium (Colace) 200 mg PO BID [facility] Last Admin: 12/23/18 08:39 Dose: 200 mg Folic Acid (Folic Acid) 1 mg PO DAILY [facility] Last Admin: 12/23/18 08:39 Dose: 1 mg Furosemide (Lasix) 20 mg PO DAILY [facility] Last Admin: 12/23/18 08:39 Dose: 20 mg Metformin HCl (Glucophage) 500 mg PO WITHBREAKFAST [facility] Last Admin: 12/23/18 07:48 Dose: 500 mg Polyethylene Glycol (Miralax) 17 gm PO DAILY [facility] Last Admin: 12/23/18 08:37 Dose: Not Given Prednisone (Prednisone) 5 mg PO DAILY [facility] Last Admin: 12/23/18 08:39 Dose: 5 mg Propylene Glycol (Systane Lubricant) 0 ml EYEBOTH Q6H PRN PRN Reason: Dry Eyes Sulfasalazine (Sulfasalazine Dr) 500 mg PO DAILY [facility] Last Admin: 12/23/18 08:39 Dose: 500 mg Tramadol HCl (Ultram) 50 mg PO Q4H PRN PRN Reason: pain 4-03/25 Discontinued Medications Docusate Sodium (Colace) 100 mg PO DAILY [facility] - Exam General: Alert, Oriented, Cooperative Skin: Other (Left hip) - Problem List & Annotations (1) Femur fracture, left SNOMED Code(s): 38412461 Code(s): S72.92XA - UNSP FRACTURE OF LEFT FEMUR, INIT ENCNTR FOR CLOSED FRACTURE Status: Acute Current Visit: No - Problem List Review Problem List Initiated/Reviewed/Updated: Yes - Plan Plan:: 1. Continue current care. 2. Anticipate discharge in the next few days.
[2018-12-24] MEDS: metFORMIN 500 MG Tab PO SCH (08:45)
[2018-12-24] MEDS: Calcium Carbonate 500 MG Tablet PO SCH ×3 (08:46→17:28)
[2018-12-24] MEDS: sulfaSALAzine 500 MG Tab.EC PO SCH (08:46)
[2018-12-24] MEDS: Cholecalciferol (Vitamin D3) 25 MCG Tab PO SCH (08:46)
[2018-12-24] MEDS: Apixaban 5 MG Tab PO SCH ×2 (08:46→21:18)
[2018-12-24] MEDS: Docusate Sodium 100 MG Cap PO SCH ×2 (08:46→21:18)
[2018-12-24] MEDS: Folic Acid 1 MG Tab PO SCH (08:46)
[2018-12-24] MEDS: Furosemide 20 MG Tab PO SCH (08:46)
[2018-12-24] MEDS: Polyethylene Glycol 3350 Powder 17 GM Packet PO SCH (08:47)
[2018-12-24] MEDS: predniSONE 5 MG Tab PO SCH (08:47)
[2018-12-24] MEDS: Acetaminophen 500 MG Tab PO SCH ×3 (08:47→21:19)
--- NOTE | 2018-12-24 09:43 | PCM.DCSUM1 ---
Discharge Summary - Hospital Course Free Text/Narrative:: Hospital course-patient did well with PT/OT was able to ambulate well with a walker. His diabetes was under good control metformin. He was on anticoagulation as prescribed by the orthopedic surgeon. He did to pass outside and did well. He'll be discharged with PT/OT. He defers home health. He'll be discharged in the a.m. with his normal medications plus Eliquis for 27 days. Brief History: This is an 88-year-old male patient was transferred down for revision of his left hip fracture. He ended up dislocating it and transferred back to [facility] in and brought him back here for PT/OT in swing bed. Diagnosis: Stroke: No - Discharge Data Discharge Date: 12/25/18 Discharge Disposition: Home, Self-Care 01 Condition: Good - Discharge Diagnosis/Problem(s) (1) Femur fracture, left SNOMED Code(s): 69199718 ICD Code: S72.92XA - UNSP FRACTURE OF LEFT FEMUR, INIT ENCNTR FOR CLOSED FRACTURE Status: Acute Current Visit: No - Patient Summary/Data Consults: Consultations 12/15/18 12:33 OT Evaluation and Treatment [CONS] Routine Please Evaluate and Treat. OT Reason for Consult: hip pain This query below is only for informational purposes and is not editable. PT Evaluation and Treatment [CONS] Routine Please Evaluate and Treat. PT Reason for Consult: hip pain This query below is only for informational purposes and is not editable. - Patient Instructions Diet: Diabetic Diet Activity: As Tolerated Driving: May Drive Today Showering/Bathing: May Shower Other/Special Instructions: 1. Recheck with Dr. Avila in 1 week. 2. Outpatient PT/OT. - Discharge Plan Prescriptions/Med Rec: Apixaban [Eliquis] 2.5 mg PO BID #27 tablet Furosemide [Lasix] 20 mg PO DAILY #30 tablet Home Medications: Home Meds Folic Acid 1 mg PO DAILY 10/13/17 [History] metFORMIN HCl [Metformin HCl] 500 mg PO WITHBREAKFAST 10/13/17 [History] predniSONE [Prednisone] 5 mg PO DAILY 10/13/17 [History] Acetaminophen [Tylenol Extra Strength] 1,000 mg PO TIDMEALS 01/29/18 [History] Propylene Glycol/Peg 400 [Systane 0.3-0.4% Eye Drops] 1 drop EYEBOTH Q6H PRN [History] sulfaSALAzine [sulfaSALAzine DR] 500 mg PO DAILY 02/04/18 [History] Calcium Carbonate [Calcium] 500 mg PO TIDMEALS 12/07/18 [History] Cholecalciferol (Vitamin D3) [Vitamin D3] 2,000 unit PO DAILY 12/07/18 [History] Docusate Sodium [Stool Softener] 100 mg PO DAILY 12/07/18 [History] Mv-Mn/Lutein/Zeax/Bilber/Hb277 [Macular Health Formula Capsule] 1 cap PO DAILY 12/07/18 [History] Apixaban [Eliquis] 2.5 mg PO BID #27 tablet 12/24/18 [Rx] Furosemide [Lasix] 20 mg PO DAILY #30 tablet 12/24/18 [Rx] Patient Handouts: Total Hip Replacement, [id number], Fall Prevention in Hospitals, Adult, Venous Thromboembolism Prevention - Discharge Summary/Plan Comment DC Time >30 min.: No - Patient Data Vitals - Most Recent: Last Vital Signs Temp 97.7 F 12/24/18 08:50 Pulse 83 12/24/18 08:50 Resp 20 12/24/18 08:50 BP 108/58 L 12/24/18 08:50 Pulse Ox 96 12/24/18 08:50 Weight - Most Recent: 220 lb 4 oz Lab Results - Last 24 hrs: Laboratory Results - last 24 hr 12/23/18 12/24/18 Range/Units 16:11 05:47 POC Glucose 121 H 108 (80-116) mg/dL Med Orders - Current: Current Medications Acetaminophen (Tylenol Extra Strength) 1,000 mg PO TID [facility] Last Admin: 12/24/18 08:47 Dose: 1,000 mg Apixaban (Eliquis) 2.5 mg PO BID [facility] Stop: 01/07/19 21:01 Last Admin: 12/24/18 08:46 Dose: 2.5 mg Calcium Carbonate/Glycine (Oyster Shell Calcium) 500 mg PO TIDMEALS [facility] Last Admin: 12/24/18 08:46 Dose: 500 mg Cholecalciferol (Vitamin D3) 50 mcg PO DAILY [facility] Last Admin: 12/24/18 08:46 Dose: 50 mcg Docusate Sodium (Colace) 200 mg PO BID [facility] Last Admin: 12/24/18 08:46 Dose: 200 mg Folic Acid (Folic Acid) 1 mg PO DAILY [facility] Last Admin: 12/24/18 08:46 Dose: 1 mg Furosemide (Lasix) 20 mg PO DAILY [facility] Last Admin: 12/24/18 08:46 Dose: 20 mg Metformin HCl (Glucophage) 500 mg PO WITHBREAKFAST [facility] Last Admin: 12/24/18 08:45 Dose: 500 mg Polyethylene Glycol (Miralax) 17 gm PO DAILY [facility] Last Admin: 12/24/18 08:47 Dose: 17 gm Prednisone (Prednisone) 5 mg PO DAILY [facility] Last Admin: 12/24/18 08:47 Dose: 5 mg Propylene Glycol (Systane Lubricant) 0 ml EYEBOTH Q6H PRN PRN Reason: Dry Eyes Sulfasalazine (Sulfasalazine Dr) 500 mg PO DAILY [facility] Last Admin: 12/24/18 08:46 Dose: 500 mg Tramadol HCl (Ultram) 50 mg PO Q4H PRN PRN Reason: pain 4-10/10 Discontinued Medications Docusate Sodium (Colace) 100 mg PO DAILY [facility]
[2018-12-25] MEDS: metFORMIN 500 MG Tab PO SCH (09:13)
[2018-12-25] MEDS: Docusate Sodium 100 MG Cap PO SCH (09:14)
[2018-12-25] MEDS: Calcium Carbonate 500 MG Tablet PO SCH (09:14)
[2018-12-25] MEDS: Apixaban 5 MG Tab PO SCH (09:14)
[2018-12-25] MEDS: Polyethylene Glycol 3350 Powder 17 GM Packet PO SCH (09:15)
[2018-12-25] MEDS: Furosemide 20 MG Tab PO SCH (09:15)
[2018-12-25] MEDS: Folic Acid 1 MG Tab PO SCH (09:15)
[2018-12-25] MEDS: Cholecalciferol (Vitamin D3) 25 MCG Tab PO SCH (09:16)
[2018-12-25] MEDS: sulfaSALAzine 500 MG Tab.EC PO SCH (09:16)
[2018-12-25] MEDS: Acetaminophen 500 MG Tab PO SCH (09:16)
[2018-12-25] MEDS: predniSONE 5 MG Tab PO SCH (09:18)
== END 2018-12-25 11:11 | disposition home or self-care (01) | DRG 561 ==
LOC: FB.MS 12:21
PROVIDERS: ADMIT Family Medicine; ATTEND Family Medicine
DX: S72.92XD Unspecified fracture of left femur, subsequent encounter for closed fracture with routine healing (principal); Z98.890 Other specified postprocedural states; E11.9 Type 2 diabetes mellitus without complications; Z79.84 Long term (current) use of oral hypoglycemic drugs; M06.9 Rheumatoid arthritis, unspecified; E55.9 Vitamin D deficiency, unspecified; Z79.01 Long term (current) use of anticoagulants; Z79.52 Long term (current) use of systemic steroids; J84.112 Idiopathic pulmonary fibrosis
CPT/HCPCS: 82962; 97110-GO; 97110-GP; 97116-GP; 97161-GP; 97165-GO; 97530-GO; 97530-GP; 97535-GO; A9270-GY

== ENCOUNTER 2019-01-02 11:12 | Inpatient (IN) | payer MEDICARE, OTHER ==
--- NOTE | 2019-01-02 14:04 | PCM.HP ---
H&P History of Present Illness - General Date of Service: 01/02/19 Source of Information: Patient, Old Records History Limitations: Reports: No Limitations - History of Present Illness Initial Comments - Free Text/Narative: David is a 88-year-old male for rehab in . He had revision of a left total hip on the , and has done well postoperatively. Had post-op anemia that has improved. He has a history of rheumatoid arthritis, and I pulmonary fibrosis are well-controlled. - Related Data Allergies/Adverse Reactions: Allergies Allergy/AdvReac Type Severity Reaction Status Date / Time No Known Allergies Allergy Verified 01/02/19 12:26 Home Medications: Home Meds Folic Acid 1 mg PO DAILY 10/13/17 [History] metFORMIN HCl [Metformin HCl] 500 mg PO WITHBREAKFAST 10/13/17 [History] predniSONE [Prednisone] 5 mg PO DAILY 10/13/17 [History] Acetaminophen [Tylenol Extra Strength] 1,000 mg PO TIDMEALS 01/29/18 [History] Propylene Glycol/Peg 400 [Systane 0.3-0.4% Eye Drops] 1 drop EYEBOTH Q6H PRN [History] sulfaSALAzine [sulfaSALAzine DR] 500 mg PO DAILY 02/04/18 [History] Calcium Carbonate [Calcium] 500 mg PO TIDMEALS 12/07/18 [History] Cholecalciferol (Vitamin D3) [Vitamin D3] 2,000 unit PO DAILY 12/07/18 [History] Mv-Mn/Lutein/Zeax/Bilber/Hb277 [Macular Health Formula Capsule] 1 cap PO ASDIRECTED 12/07/18 [History] Apixaban [Eliquis] 2.5 mg PO BID #27 tablet 12/24/18 [Rx] traMADol [Ultram] 50 mg PO Q4H PRN 01/02/19 [History] Past Medical History - Past Health History Medical/Surgical History: Denies Medical/Surgical History HEENT History: Reports: Cataract, Hard of Hearing, Macular Degeneration Other HEENT History: L retinal detachment. Cardiovascular History: Reports: SOB on Exertion, Other (See Below) Other Cardiovascular History: HEART RATE IRREGULAR. Respiratory History: Reports: COPD, Pulmonary Fibrosis Gastrointestinal History: Reports: GERD Musculoskeletal History: Reports: Arthritis Other Musculoskeletal History: neck fx C6 Neurological History: Reports: Other (See Below) Other Neuro History: Back injury from with an incident para-trooping in the service. Endocrine/Metabolic History: Reports: Diabetes, Type II - Infectious Disease History Infectious Disease History: Reports: Chicken Pox, Measles, Mumps, Shingles Other Infectious Disease History: Patient not sure if he had Rubella or Measles. - Past Surgical History Head Surgeries/Procedures: Reports: None HEENT Surgical History: Reports: Cataract Surgery, Detached Retina Other HEENT Surgeries/Procedures: detached retina in L eye Cardiovascular Surgical History: Reports: None Respiratory Surgical History: Reports: None GI Surgical History: Reports: None Musculoskeletal Surgical History: Reports: Knee Replacement, Other (See Below) Other Musculoskeletal Surgeries/Procedures:: Left and right knee replacement. Left hip repair. Cervical fx. Underwent surgery 12/31/18 for dislocated hip and had a new ball socket. Dermatological Surgical History: Reports: None Social & Family History - Family History Family Medical History: Noncontributory Respiratory: Reports: Asthma - Tobacco Use Smoking Status *Q: Former Smoker Years of Tobacco use: 10 Packs/Tins Daily: 3 Used Tobacco, but Quit: Yes Month/Year Tobacco Last Used: 1963 Second Hand Smoke Exposure: No - Caffeine Use Caffeine Use: Reports: Coffee Other Caffeine Use: 1 cup/day Caffeine Use Comment: 1 cup per day - Recreational Drug Use Recreational Drug Use: No H&P Review of Systems - Review of Systems: Review Of Systems: ROS reveals no pertinent complaints other than HPI. Exam - Exam Exam: See Below - Vital Signs Weight: 100.607 kg - Exam General: Alert, Oriented, 4 HEENT: PERRLA, Hearing Intact, Mucosa Moist & [place], Nares Patent, Normal Nasal Septum, Posterior Pharynx Clear, Conjunctiva Clear, EOMI, EACs Clear, TMs Clear Neck: Supple, Trachea Midline, 2 Lungs: Normal Respiratory Effort, Decreased Breath Sounds Cardiovascular: Regular Rate, Regular Rhythm GI/Abdominal Exam: Normal Bowel Sounds, Soft, Non-Tender, No Organomegaly, No Distention, No Abnormal Bruit, No Mass, Pelvis Stable (Male) Exam: Deferred Rectal (Males) Exam: Deferred Back Exam: Normal Inspection, Full Range of Motion, NT Extremities: No Pedal Edema, Limited Range of Motion Skin: Warm, Dry, Intact Neurological: Cranial Nerves Intact, Reflexes Equal Bilateral Neuro Extensive - Mental Status: Alert, Oriented x3, Normal Mood/Affect, Normal Cognition Neuro Extensive - Motor, Sensory, Reflexes: CN II-XII Intact, Normal Gait, Normal Reflexes Psychiatric: Alert, Normal Affect, Normal Mood - Problem List (1) History of revision of total hip arthroplasty SNOMED Code(s): 628970060, 343203927 ICD Code: Z96.649 - PRESENCE OF UNSPECIFIED ARTIFICIAL HIP JOINT Status: Acute Current Visit: Yes (2) Encounter for rehabilitation SNOMED Code(s): 923601236, 974514281 ICD Code: Z51.89 - ENCOUNTER FOR OTHER SPECIFIED AFTERCARE Status: Acute Current Visit: Yes (3) Blood loss anemia SNOMED Code(s): 666247225 ICD Code: D50.0 - IRON DEFICIENCY ANEMIA SECONDARY TO BLOOD LOSS (CHRONIC) Status: Acute Current Visit: No (4) Pulmonary fibrosis SNOMED Code(s): 99326619 ICD Code: J84.10 - PULMONARY FIBROSIS, UNSPECIFIED Status: Chronic Current Visit: No (5) Rheumatoid arthritis SNOMED Code(s): 90381984 ICD Code: M06.9 - RHEUMATOID ARTHRITIS, UNSPECIFIED Status: Chronic Current Visit: No Qualifiers: Rheumatoid factor presence: unspecified presence Problem List Initiated/Reviewed/Updated: Yes Orders Last 24hrs: Active Orders 24 hr Category Date Time Status Communication Order [RC] Click to Edit Care 01/13/19 10:40 Active Communication Order [RC] Click to Edit Care 02/10/19 14:40 Active Communication Order [RC] INTERMITTENT Care 01/07/19 09:00 Active Assessment/Plan Comment:: Admit to SB.PT/OT.Continue Eliquis for total of 35 days post op.
[2019-01-02] MEDS ORDERED: PEG 400/Propylene Glycol Ophth Soln 15 ML Bottle EYEBOTH PRN (14:07)
[2019-01-02] MEDS ORDERED: traMADol 50 MG Tab PO PRN (14:07)
[2019-01-02] MEDS: Acetaminophen 500 MG Tab PO SCH (17:19)
[2019-01-02] MEDS: Calcium Carbonate 500 MG Tablet PO SCH (17:20)
[2019-01-02] MEDS: Apixaban 5 MG Tab PO SCH (20:16)
[2019-01-03] MEDS: Cholecalciferol (Vitamin D3) 25 MCG Tab PO SCH (08:27)
[2019-01-03] MEDS: predniSONE 5 MG Tab PO SCH (08:28)
[2019-01-03] MEDS: Acetaminophen 500 MG Tab PO SCH ×3 (08:28→17:52)
[2019-01-03] MEDS: metFORMIN 500 MG Tab PO SCH (08:28)
[2019-01-03] MEDS: Folic Acid 1 MG Tab PO SCH (08:29)
[2019-01-03] MEDS: Calcium Carbonate 500 MG Tablet PO SCH ×3 (08:29→17:52)
[2019-01-03] MEDS: Apixaban 5 MG Tab PO SCH ×2 (08:30→20:23)
[2019-01-03] MEDS: sulfaSALAzine 500 MG Tab.EC PO SCH (09:01)
[2019-01-04] MEDS: sulfaSALAzine 500 MG Tab.EC PO SCH (08:21)
[2019-01-04] MEDS: Calcium Carbonate 500 MG Tablet PO SCH ×3 (08:21→18:13)
[2019-01-04] MEDS: metFORMIN 500 MG Tab PO SCH (08:21)
[2019-01-04] MEDS: Cholecalciferol (Vitamin D3) 25 MCG Tab PO SCH (08:22)
[2019-01-04] MEDS: Apixaban 5 MG Tab PO SCH ×2 (08:22→20:42)
[2019-01-04] MEDS: predniSONE 5 MG Tab PO SCH (08:22)
[2019-01-04] MEDS: Acetaminophen 500 MG Tab PO SCH ×3 (08:22→18:13)
[2019-01-04] MEDS: Folic Acid 1 MG Tab PO SCH (08:22)
[2019-01-04] MEDS: [UNRECOGNIZED DRUG - OTHER] PO SCH (13:01)
[2019-01-05] MEDS: metFORMIN 500 MG Tab PO SCH (08:43)
[2019-01-05] MEDS: Acetaminophen 500 MG Tab PO SCH ×3 (08:43→18:17)
[2019-01-05] MEDS: Calcium Carbonate 500 MG Tablet PO SCH ×3 (08:43→18:16)
[2019-01-05] MEDS: Apixaban 5 MG Tab PO SCH ×2 (08:44→21:43)
[2019-01-05] MEDS: predniSONE 5 MG Tab PO SCH (08:45)
[2019-01-05] MEDS: sulfaSALAzine 500 MG Tab.EC PO SCH (08:45)
[2019-01-05] MEDS: Folic Acid 1 MG Tab PO SCH (08:45)
[2019-01-05] MEDS: Cholecalciferol (Vitamin D3) 25 MCG Tab PO SCH (08:46)
[2019-01-06] MEDS: Acetaminophen 500 MG Tab PO SCH ×3 (08:00→19:14)
[2019-01-06] MEDS: Calcium Carbonate 500 MG Tablet PO SCH ×3 (08:00→19:15)
[2019-01-06] MEDS: metFORMIN 500 MG Tab PO SCH (08:00)
[2019-01-06] MEDS: Folic Acid 1 MG Tab PO SCH (08:26)
[2019-01-06] MEDS: Apixaban 5 MG Tab PO SCH ×2 (08:26→20:13)
[2019-01-06] MEDS: Cholecalciferol (Vitamin D3) 25 MCG Tab PO SCH (08:27)
[2019-01-06] MEDS: sulfaSALAzine 500 MG Tab.EC PO SCH (08:27)
[2019-01-06] MEDS: predniSONE 5 MG Tab PO SCH (08:27)
[2019-01-07] MEDS: Apixaban 5 MG Tab PO SCH ×2 (08:53→21:27)
[2019-01-07] MEDS: Cholecalciferol (Vitamin D3) 25 MCG Tab PO SCH (08:53)
[2019-01-07] MEDS: Acetaminophen 500 MG Tab PO SCH ×3 (08:53→17:47)
[2019-01-07] MEDS: Folic Acid 1 MG Tab PO SCH (08:53)
[2019-01-07] MEDS: Calcium Carbonate 500 MG Tablet PO SCH ×3 (08:54→17:47)
[2019-01-07] MEDS: metFORMIN 500 MG Tab PO SCH (08:54)
[2019-01-07] MEDS: sulfaSALAzine 500 MG Tab.EC PO SCH (08:54)
[2019-01-07] MEDS: predniSONE 5 MG Tab PO SCH (08:54)
[2019-01-07] MEDS: [UNRECOGNIZED DRUG - OTHER] PO SCH (13:49)
[2019-01-08] MEDS: Calcium Carbonate 500 MG Tablet PO SCH (09:23)
[2019-01-08] MEDS: Acetaminophen 500 MG Tab PO SCH (09:23)
[2019-01-08] MEDS: metFORMIN 500 MG Tab PO SCH (09:23)
[2019-01-08] MEDS: Apixaban 5 MG Tab PO SCH (09:24)
[2019-01-08] MEDS: sulfaSALAzine 500 MG Tab.EC PO SCH (09:24)
[2019-01-08] MEDS: predniSONE 5 MG Tab PO SCH (09:24)
[2019-01-08] MEDS: Cholecalciferol (Vitamin D3) 25 MCG Tab PO SCH (09:24)
[2019-01-08] MEDS: Folic Acid 1 MG Tab PO SCH (09:24)
--- NOTE | 2019-01-09 04:24 | DISCH ---
DISCHARGE DATE: 01/08/2019 HISTORY: Fredy is an 88-year-old man from [place], who sustained a left hip fracture approximately a year ago. This was treated with ORIF, and he had pain and inability to ambulate ever since. For this reason his hip was replaced with a total hip by Dr. Bauer on 12/03/2018. Subsequent to that, he had 2 spontaneous dislocations, both while sitting on the toilet. He was taken back to surgery, and on 12/26/2018, underwent revision of the total hip. He was discharged to swing bed on 12/26/2018 at [facility] and he has been receiving therapy since then. Fredy is now anxious to go home. He is up walking. He gets up out of bed and out of his chair, gets himself dressed and is independent. He says his pain is controlled with just Tylenol. Examination at the time of discharge includes him to be alert and an excellent historian. Vital signs are normal. Respirations easy. Ambulation is brisk with his walker. He also picks up his walker and says he could walk without it if had to. DISCHARGE DIAGNOSES: 1. Post revision left hip. 2. Rheumatoid arthritis. 3. Postop anemia. 4. Type 2 diabetes, result of long-term steroid use for his rheumatoid arthritis. PLAN: He is discharged to home in good condition to continue medications as follows: 1. Eliquis 2.5 mg b.i.d. through February 06, 2019. 2. Sulfasalazine 500 mg daily. 3. Propylene glycol eyedrops lubricant p.r.n. 4. Prednisone 5 mg daily. 5. Ocuvite 1 daily. 6. Metformin 500 mg daily. 7. Folic acid 1 mg daily. 8. Vitamin D3 2000 units daily. 9. Calcium 500 mg t.i.d. 10.Tylenol 1 g t.i.d. p.r.n. pain. He has an appointment for followup with Dr. Bauer's office on 01/13/2019, and is asked to have follow up with me in my office 2 weeks after that. /[id number] LINDEN/TARASL
== END 2019-01-08 11:07 | disposition home or self-care (01) | DRG 812 ==
LOC: FB.MS 11:38
PROVIDERS: ADMIT Family Medicine; ATTEND Family Medicine
DX: D50.0 Iron deficiency anemia secondary to blood loss (chronic) (principal); Z47.1 Aftercare following joint replacement surgery; Z96.642 Presence of left artificial hip joint; Z51.89 Encounter for other specified aftercare; Z98.890 Other specified postprocedural states; M06.9 Rheumatoid arthritis, unspecified; H35.30 Unspecified macular degeneration; J44.9 Chronic obstructive pulmonary disease, unspecified; J84.10 Pulmonary fibrosis, unspecified; K21.9 Gastro-esophageal reflux disease without esophagitis; M19.90 Unspecified osteoarthritis, unspecified site; E11.9 Type 2 diabetes mellitus without complications; Z79.84 Long term (current) use of oral hypoglycemic drugs; Z96.653 Presence of artificial knee joint, bilateral; Z87.891 Personal history of nicotine dependence; H91.90 Unspecified hearing loss, unspecified ear; Z79.01 Long term (current) use of anticoagulants; Z79.52 Long term (current) use of systemic steroids; Z79.899 Other long term (current) drug therapy
CPT/HCPCS: 97110-GO; 97110-GP; 97116-GP; 97161-GP; 97165-GO; 97530-GO; 97535-GO; A9270-GY